=== PATIENT | female | born 1940 | race Caucasian/White ===

== ENCOUNTER → 2016-03-07 | Outpatient (CLI) | payer OTHER ==
[~2016-03-07] VITALS: Ht 157.5 cm; Wt 101.4 kg
[~2016-03-07] MED LIST: ASCA500 PO; ASPI81TA28 PO; CALC500C70 PO; CETI10TA84 PO; COEN90TA PO; EZET10TA63 PO; GLC/500 PO; HYDR25TA4 PO; IBUP-103 PO; LISI-725 PO; LISI-794 PO; METO25TA56 PO; MULT-506 PO; OMEG10007 PO; OMEP20TA PO; RED600TA PO; SIMV10TA2 PO
[2016-03-07 16:00] VITALS: BP 131/58; PULSE 67; Ht 157.5 cm; Wt 101.4 kg
== END | disposition home or self-care (01) ==
LOC: C.NEUR 15:43
PROVIDERS: ATTEND Internal Medicine Pulmonary Disease
DX: G47.33 Obstructive sleep apnea (adult) (pediatric) (principal); G47.61 Periodic limb movement disorder; R40.0 Somnolence

== ENCOUNTER → 2016-03-31 | Outpatient (CLI) | payer OTHER ==
[~2016-03-31] MED LIST changes: -LISI-725 PO; -METO25TA56 PO; -OMEG10007 PO; -SIMV10TA2 PO
[2016-03-31 09:59] LABS: ALT/SGPT 23 U/L (12-78); AST/SGOT 17 U/L (15-37); BLOOD UREA NITROGEN 15 mg/dl (7-18); BUN/CREATININE RATIO 16.1 (10-20); CALCIUM 8.8 mg/dl (8.5-10.1); CARBON DIOXIDE 26 mmol/L (21-32); CHLORIDE 105 mmol/L (98-107); CHOLESTEROL 215 mg/dl (0-200); GLUCOSE 125 mg/dl (70-99); POTASSIUM 4.2 mmol/L (3.5-5.1); SODIUM 139 mmol/L (136-145); TRIGLYCERIDES 165 mg/dl (0-150); VERY LOW DENSITY LIPOPROT CALC 33 mg/dl
[2016-03-31 10:02] LABS: CHOLESTEROL/HDL RATIO 4.3; HDL CHOLESTEROL 50 mg/dl; LDL CHOLESTEROL CALCULATED 132 mg/dl
[2016-03-31 10:19] LABS: ESTIMATED AVERAGE GLUCOSE 128 mg/dl; HA1C FLAG Normal (Normal)
== END | disposition home or self-care (01) ==
LOC: C.LAB1850 08:32
PROVIDERS: ATTEND Family Medicine
DX: E11.9 Type 2 diabetes mellitus without complications (principal); E78.00 Pure hypercholesterolemia, unspecified; I10 Essential (primary) hypertension

== ENCOUNTER → 2016-05-01 | Day surgery (SDC) | payer OTHER ==
[2016-03-23 13:38] VITALS: Ht 158.8 cm; Wt 101.4 kg
[~2016-05-01] VITALS: Ht 158.8 cm; Wt 101.4 kg
[~2016-05-01] MED LIST changes: +LIDOCAINE HCL 2% 2 ML VIAL (20MG/ML) ONE; +PROPOFOL IV EMULSION 10 MG/ML 20 ML VIAL IV ONE
--- NOTE | 2016-05-01 13:51 | Endo History and Physical ---
History & Physical Date of Service: May 01, 2016. Chief Complaint: DYSPHAGIA, SCREENING Referring Physician: DR. SANDOVAL History of Present Illness For EGD and colonoscopy Past Surgical History Hx Cardiac Surgery: Yes (HEART CATH, NO STENTS) Hx Internal Defibrillator: No Hx Pacemaker: No Hx Abdominal Surgery: Yes (EDSON) Hx of Implantable Prosthesis: No Hx Post-Op Nausea and Vomiting: No Hx Cancer Surgery: No Hx Thoracic Surgery: No Hx Orthopedic: No Hx Urinary Tract Surgery: No Family History Colon CA Social History Smoking Status: Never Smoker Hx Substance Use: No Hx Alcohol Use: No Allergies Coded Allergies: Statins (Verified Allergy, Unknown, LEG CRAMPS, 05/01/16) Current Medications Reported Home Medications Medications Dose Route/Sig Max Daily Dose Days Date Category Zetia (Ezetimibe) 10 Mg Tab 10 Mg PO DAILY 05/01/16 Reported Aspirin Ec (Aspirin) 81 Mg Tab 81 Mg PO Q2D 03/23/16 Reported Vitamin C (Ascorbic Acid) 500 Mg Tab 1 Tab PO QAM 03/23/16 Reported Multivitamin (Multivitamins) Tab 1 Tab PO QAM 03/23/16 Reported Advil (Ibuprofen) 200 Mg Tab 200-600 Mg PO Q4H PRN 03/23/16 Reported Os-Sandro 500 Plus D (Calcium/Vitamin D) Tab 1 Tab PO QAM 03/23/16 Reported Red Yeast Rice (Red Yeast Rice Extract) 600 Mg Tab 2 Tabs PO BID 03/23/16 Reported Co Q10 (Coenzyme Q10) 90 Mg Tab 1 Tab PO QAM 03/23/16 Reported Zestril (Lisinopril) 40 Mg Tab 40 Mg PO QAM 03/23/16 Reported Hctz (Hydrochlorothiazide) 25 Mg Tab 25 Mg PO QAM 08/24/12 Reported Glucophage (Metformin Hcl) 500 Mg Tab 1,500 Mg PO QPM 08/24/12 Reported Glucophage (Metformin Hcl) 500 Mg Tab 1,000 Mg PO QAM 08/24/12 Reported Vital Signs Weight (Kilograms): 101.36 Height (Feet): 5 Height (Inches): 2.5 Date Time Temp Pulse Resp B/P Pulse Ox O2 Delivery O2 Flow Rate FiO2 05/01/16 13:35 36.4 74 16 157/75 98 Room Air Physical Exam General Appearance: WD/WN Respiratory/Chest: Respiratory effort: no dyspnea Cardiovascular: Heart Auscultation: RRR Abdomen: Inspection & Palpation: soft Assessment and Plan Dysphagia and fam hx colon cancer for EGD and colonoscopy
--- NOTE | 2016-05-01 14:20 | Discharge Instructions ---
Endoscopy Patient Instructions Date / Procedure(s) Performed May 01, 2016. Colonoscopy, EGD Allergy Information Coded Allergies: Statins (Verified Allergy, Unknown, LEG CRAMPS, 05/01/16) Discharge Date / Findings May 01, 2016. Stricture dilated, Hiatal hernia, polyp Medication Instructions Stopped Medication(s): ASPIRIN 04/26/16 Restart Stopped Medication(s): resume meds Reported Home Medications Medications Dose Route/Sig Max Daily Dose Days Date Category Zetia (Ezetimibe) 10 Mg Tab 10 Mg PO DAILY 05/01/16 Reported Aspirin Ec (Aspirin) 81 Mg Tab 81 Mg PO Q2D 03/23/16 Reported Vitamin C (Ascorbic Acid) 500 Mg Tab 1 Tab PO QAM 03/23/16 Reported Multivitamin (Multivitamins) Tab 1 Tab PO QAM 03/23/16 Reported Advil (Ibuprofen) 200 Mg Tab 200-600 Mg PO Q4H PRN 03/23/16 Reported Os-Sandro 500 Plus D (Calcium/Vitamin D) Tab 1 Tab PO QAM 03/23/16 Reported Red Yeast Rice (Red Yeast Rice Extract) 600 Mg Tab 2 Tabs PO BID 03/23/16 Reported Co Q10 (Coenzyme Q10) 90 Mg Tab 1 Tab PO QAM 03/23/16 Reported Zestril (Lisinopril) 40 Mg Tab 40 Mg PO QAM 03/23/16 Reported Hctz (Hydrochlorothiazide) 25 Mg Tab 25 Mg PO QAM 08/24/12 Reported Glucophage (Metformin Hcl) 500 Mg Tab 1,500 Mg PO QPM 08/24/12 Reported Glucophage (Metformin Hcl) 500 Mg Tab 1,000 Mg PO QAM 08/24/12 Reported Provider Instructions Activity Restrictions - No exercising or heavy lifting for 24 hours. - Do not drink alcohol the day of the procedure. - Do not drive a car or operate machinery until the day after the procedure. - Do not make any important decisions or sign important papers in 24 hours after the procedure. Following Day: - Return to full activity which may include returning to work/school. Diet Start your diet with liquids and light foods (jello, soup, juice, toast). Then eat your usual diet if not nauseated. Treatment For Common After Affects For mild abdominal pain, bloating, or excessive gas: - Rest - Eat lightly - Lie on right side Follow-Up Information Follow-up with DR. SANDOVAL as scheduled Anesthesia Information What You Should Know You have had a procedure that required some medicine to reduce anxiety and discomfort. This treatment is called moderate sedation. After receiving the treatment, you may be sleepy, but you will be able to breathe on your own. The effects of the treatment may last for several hours. Follow these instructions along with Activity/Diet recommendations noted above: * Do NOT do anything where dizziness or clumsiness would be dangerous. * Rest quietly at home today, then you can be up and about tomorrow. * Have a responsible person stay with you the rest of today. * You may have had an I.V. today. If so, you may take the dressing off later today. Recommendations Call your doctor if: * Trouble breathing * Continuous vomiting for more than 24 hours * Temperature above 101 degrees * Severe abdominal pain or bloating * Pain not relieved by pain medicine ordered * There is increased drainage or redness from any incision * A large amount of rectal bleeding greater than 2-3 tablespoons. (If you had a polyp/s removed or have hemorrhoids, a small amount of blood - from the rectum is to be expected.) * You have any unanswered questions or concerns. IN THE EVENT OF A SERIOUS EMERGENCY, GO TO THE NEAREST EMERGENCY ROOM Your discharge instructions were prepared by provider Nahun Henry. Patient Instructions Signature Page Jory Mayer Patient (or Guardian) Signature/Date: I have read and understand the instructions given to me by my caregivers. Caregiver/RN/Doctor Signature/Date: The above-named patient and/or guardian has received patient instructions on this date. + Original Patient Signature Page (only) stays with chart. Please make copy for patient.
--- NOTE | 2016-05-01 14:26 | GI REPORT ---
Procedure Date: 05/01/2016 1:37 PM Procedure: Upper GI endoscopy Indications: Dysphagia Medicines: Propofol total dose 450 mg IV, Lidocaine 100 mg IV Complications: No immediate complications. Estimated Blood Loss: Estimated blood loss: none. Estimated blood loss: none. Procedure: Pre-Anesthesia Assessment: - Prior to the procedure, a History and Physical was performed, and patient medications, allergies and sensitivities were reviewed. The patient's tolerance of previous anesthesia was reviewed. - The risks and benefits of the procedure and the sedation options and risks were discussed with the patient. All questions were answered and informed consent was obtained. After obtaining informed consent, the endoscope was passed under direct vision. Throughout the procedure, the patient's blood pressure, pulse, and oxygen saturations were monitored continuously. The scope was introduced through the mouth, and advanced to the second part of duodenum. The upper GI endoscopy was accomplished without difficulty. The patient tolerated the procedure well. Findings: A small hiatus hernia was present. LA Grade A (one or more mucosal breaks less than 5 mm, not extending between tops of 2 mucosal folds) esophagitis with no bleeding was found. One mild benign-appearing, intrinsic stenosis was found. And was traversed. A guidewire was placed and the scope was withdrawn. Dilation was performed with a Savary dilator with no resistance at 54 Fr. The entire examined stomach was normal. The examined duodenum was normal. Impression: - Small hiatus hernia. - LA Grade A reflux esophagitis. - Benign-appearing esophageal stenosis. Dilated. - Normal stomach. - Normal examined duodenum. - No specimens collected. Recommendation: - Discharge patient to home (ambulatory). - Continue present medications. - Return to primary care physician PRN. - Discharge patient to home (ambulatory). - Continue present medications. - Return to primary care physician PRN. Nahun Henry M.D. Nahun Henry MD 05/01/2016 2:26:30 PM This report has been signed electronically. Note Initiated On: 05/01/2016 1:37 PM I attest to the content of the Intraoperative Record and orders documented therein, exceptions below
--- NOTE | 2016-05-01 14:31 | GI REPORT ---
Procedure Date: 05/01/2016 1:38 PM Procedure: Colonoscopy Indications: Screening for colorectal malignant neoplasm Medicines: Propofol total dose 450 mg IV, Lidocaine 100 mg IV Complications: No immediate complications. Estimated Blood Loss: Estimated blood loss: none. Procedure: Pre-Anesthesia Assessment: - Prior to the procedure, a History and Physical was performed, and patient medications, allergies and sensitivities were reviewed. The patient's tolerance of previous anesthesia was reviewed. - The risks and benefits of the procedure and the sedation options and risks were discussed with the patient. All questions were answered and informed consent was obtained. After I obtained informed consent, the scope was passed under direct vision. Throughout the procedure, the patient's blood pressure, pulse, and oxygen saturations were monitored continuously. The Scope was introduced through the anus and advanced to the cecum, identified by appendiceal orifice and ileocecal valve. The colonoscopy was performed without difficulty. The patient tolerated the procedure well. The quality of the bowel preparation was good. Findings: A 4 mm polyp was found in the cecum. The polyp was sessile. The polyp was removed with a cold snare. Resection and retrieval were complete. Estimated blood loss was minimal. Impression: - One 4 mm polyp in the cecum, removed with a cold snare. Resected and retrieved. Recommendation: - Discharge patient to home (ambulatory). - Continue present medications. - Await pathology results. - Return to primary care physician. Nahnu Henry M.D. Nahun Henry MD 05/01/2016 2:31:43 PM This report has been signed electronically. Note Initiated On: 05/01/2016 1:38 PM I attest to the content of the Intraoperative Record and orders documented therein, exceptions below
--- NOTE | 2016-05-01 14:36 | Anesthesiology Progress Note ---
Anesthesia Post Op Note Date & Time May 01, 2016 at 14:36 Vital Signs Pain Intensity: 0 Vital Signs Past 12 Hours Date Time Temp Pulse Resp B/P Pulse Ox O2 Delivery O2 Flow Rate FiO2 05/01/16 14:24 67 18 109/58 98 Room Air 05/01/16 13:35 36.4 74 16 157/75 98 Room Air Notes Mental Status: alert / awake / arousable, participated in evaluation Pt Amnestic to Procedure: Yes Nausea / Vomiting: adequately controlled Pain: adequately controlled Airway Patency, RR, SpO2: stable & adequate BP & HR: stable & adequate Hydration State: stable & adequate Anesthetic Complications: no major complications apparent
[2016-05-01 14:54] VITALS: BP 127/57; PULSE 59; O2SAT 99
== END | disposition home or self-care (01) ==
LOC: C.GI 13:09
PROVIDERS: ATTEND Internal Medicine Gastroenterology
DX: R13.10 Dysphagia, unspecified (principal); D12.0 Benign neoplasm of cecum; K22.2 Esophageal obstruction; K21.0 Gastro-esophageal reflux disease with esophagitis; K44.9 Diaphragmatic hernia without obstruction or gangrene; Z90.49 Acquired absence of other specified parts of digestive tract; Z80.0 Family history of malignant neoplasm of digestive organs; Z88.8 Allergy status to other drugs, medicaments and biological substances; Z79.82 Long term (current) use of aspirin; G47.33 Obstructive sleep apnea (adult) (pediatric); I10 Essential (primary) hypertension; E78.5 Hyperlipidemia, unspecified; M19.90 Unspecified osteoarthritis, unspecified site; E11.9 Type 2 diabetes mellitus without complications; Z87.891 Personal history of nicotine dependence

== ENCOUNTER 2016-07-31 00:36 | Emergency (ER) | payer OTHER ==
[~2016-07-31] VITALS: Ht 156.2 cm; Wt 101.1 kg
[~2016-07-31 00:36] MED LIST changes: -CETI10TA84 PO; -LIDOCAINE HCL 2% 2 ML VIAL (20MG/ML) ONE; -OMEP20TA PO; -PROPOFOL IV EMULSION 10 MG/ML 20 ML VIAL IV ONE
[2016-07-31 00:43] VITALS: Ht 156.2 cm; Wt 101.1 kg
--- NOTE | 2016-07-31 01:17 | EMERGENCY ROOM VISIT NOTE ---
History First contact with patient: 00:48 Chief Complaint: FOOD BOLUS Stated Complaint: FEELS LIKE SOMETHING IS STUCK IN THROAT History of Present Illness The patient is a 75 year old female who presents to the Emergency Room with complaints of something stuck in her throat. The patient reports she was eating dinner approximately 6 hours ago and something got stuck in her throat. She states she was eating steak and crab cakes. She has difficulty swallowing and has been gagging. She reports a long history of problems swallowing and had a recent scope performed by Dr. Henry. She denies any difficulty breathing or chest pain. Review of Systems A complete 10 point review of systems was reviewed with the patient with pertinent positives and negatives as per history of present illness. All else were negative. Social History Smoking Status: Never Smoker Current/Historical Medications Scheduled Ascorbic Acid (Vitamin C), 1 TAB PO QAM Aspirin (Aspirin Ec), 81 MG PO Q2D Calcium/Vitamin D (Os-Sandro 500 Plus D), 1 TAB PO QAM Coenzyme Q10 (Ubidecarenone) (Co Q10), 1 TAB PO QAM Ezetimibe (Zetia), 10 MG PO DAILY Hydrochlorothiazide (Hctz), 25 MG PO QAM Lisinopril (Zestril), 40 MG PO QAM Metformin Hcl (Glucophage), 1,000 MG PO QAM Metformin Hcl (Glucophage), 1,500 MG PO QPM Multivitamin (Multivitamin), 1 TAB PO QAM Red Yeast Rice Extract (Red Yeast Rice), 2 TABS PO BID Scheduled PRN Ibuprofen Tab (Advil), 200-600 MG PO Q4H PRN for Pain Allergies Coded Allergies: Statins (Verified Allergy, Unknown, LEG CRAMPS, 05/01/16) Physical Exam Vital Signs Date Time Temp Pulse Resp B/P (MAP) Pulse Ox O2 Delivery O2 Flow Rate FiO2 07/31/16 04:05 69 14 123/55 (77) 96 Room Air 07/31/16 03:50 77 14 122/50 (74) 95 Room Air 07/31/16 03:40 71 14 130/52 (78) 95 Room Air 07/31/16 03:25 36.3 75 21 105/50 93 Room Air 07/31/16 03:25 36.6 72 14 118/47 (70) 94 Room Air 07/31/16 03:20 74 17 130/57 94 Room Air 07/31/16 03:10 72 14 128/52 96 Room Air 07/31/16 03:00 72 14 94/56 96 Room Air 07/31/16 02:01 72 20 140/83 98 07/31/16 01:22 Room Air 07/31/16 00:43 36.6 66 19 147/84 96 Room Air Physical Exam VITALS: Vitals are noted on the nurse's note and reviewed by myself. Vital signs stable. GENERAL: This is a 75-year-old female, in no acute distress, spitting saliva into an emesis bag and gagging, nondiaphoretic, well-developed well-nourished. MOUTH: Mucous membranes moist, oropharynx clear. Airway patent. HEART: Regular rate and rhythm without murmurs gallops or rubs. LUNGS: Clear to auscultation bilaterally without wheezes, rales or rhonchi. NEURO: Patient was alert and oriented to person place and time. Medical Decision & Procedures Laboratory Results Test 07/31/16 02:13 Bedside Glucose 126 mg/dl (70-90) ED Course The patient was evaluated as above. Labs were drawn and IV access was obtained. Case was discussed with Dr. Benton of GI. He will take the patient to the OR. Please see his note for patient course and disposition. Medical Decision Differential diagnosis includes food bolus, esophagitis, infection, among others. The patient is a 75-year-old with pmhx of dysphagia who presents today complaining of a food bolus. Patient was spitting into an emesis bag on arrival. GI was consulted and agrees to take the patient to the OR for EGD. See their notes for course and disposition. Patient was stable while in the emergency department. The patient was independently evaluated by Dr. Goel, ED attending physician , who agreed with my assessment and treatment plan. Medication reconciliation: I attest that I have personally reviewed the patient 's current medication list. Blood pressure screening: Patient was found to have an elevated blood pressure and was referred to their primary care provider for recheck and further treatment. Impression Primary Impression: Esophageal obstruction due to food impaction Departure Information Referrals Dez Ruffin M.D. (PCP) Patient Instructions My [facility]
[2016-07-31] MEDS ORDERED: PROPOFOL IV EMULSION 10 MG/ML 20 ML VIAL IV ONE (01:55)
[2016-07-31] MEDS ORDERED: FENTANYL CITRATE INJ 50 MCG/1 ML 2 ML VIAL ONE (01:57)
--- NOTE | 2016-07-31 01:59 | History & Physical Bridge Note ---
H&P Re-Evaluation Bridge Note: I have examined the patient, reviewed the History & Physical and in the interval since the performance of the History & Physical I have noted the following changes of clinical significance: AAOx3 Nls1s2 Lungs CTA Abd soft NT/ND + BS - CCE for EGD food bolus removal
[2016-07-31] MEDS ORDERED: ONDANSETRON INJ 2 MG/ML 2 ML VIAL ONE (02:00)
[2016-07-31] MEDS ORDERED: LIDOCAINE HCL 2% 2 ML VIAL (20MG/ML) ONE (02:00)
[2016-07-31] MEDS ORDERED: SUCCINYLCHOLINE CHLORIDE 20 MG/ML 10 ML VIAL IV ONE (02:00)
[2016-07-31 02:01] VITALS: O2SAT 98
[2016-07-31] MEDS ORDERED: ATROPINE SULFATE 0.1 MG/ML 5ML SYR IV PRN (02:15)
[2016-07-31] MEDS ORDERED: HYDROmorphone INJ 2 MG/ML SYR/VIAL IV PRN (02:15)
[2016-07-31] MEDS ORDERED: FENTANYL CITRATE INJ 50 MCG/1 ML 2 ML VIAL IV PRN (02:15)
[2016-07-31] MEDS ORDERED: PHENYLEPHRINE 100MCG/ML 5ML SYR IV PRN (02:15)
[2016-07-31] MEDS ORDERED: FLUMAZENIL 0.1 MG/1 ML 10 ML VIAL IV PRN (02:15)
[2016-07-31] MEDS ORDERED: NALOXONE HCL 0.4 MG/1 ML VIAL/CARP IV PRN (02:15)
[2016-07-31] MEDS ORDERED: LABETALOL HCL IV 5 MG/ML 20ML IV PRN (02:15)
[2016-07-31] MEDS ORDERED: EpHEDrine SULFATE INJ 50 MG/ML AMP IV PRN (02:15)
[2016-07-31] MEDS ORDERED: ONDANSETRON INJ 2 MG/ML 2 ML VIAL IV PRN (02:15)
[2016-07-31] MEDS ORDERED: MEPERIDINE HCL 25 MG/ML CARP IV PRN (02:15)
[2016-07-31] MEDS ORDERED: METOCLOPRAMIDE HCL INJ 5 MG/ML 2 ML VIAL ONE (02:37)
[2016-07-31] MEDS ORDERED: PHENYLEPHRINE HCL INJ 10 MG/ML VIAL ONE (02:38)
--- NOTE | 2016-07-31 02:55 | GI REPORT ---
Procedure Date: 07/31/2016 1:47 AM Procedure: Upper GI endoscopy Indications: Foreign body in the esophagus Medicines: General Anesthesia Complications: No immediate complications. Estimated blood loss: Minimal. Estimated Blood Loss: Estimated blood loss was minimal. Estimated blood loss was minimal. Procedure: Pre-Anesthesia Assessment: - Prior to the procedure, a History and Physical was performed, and patient medications and allergies were reviewed. The patient's tolerance of previous anesthesia was also reviewed. The risks and benefits of the procedure and the sedation options and risks were discussed with the patient. All questions were answered, and informed consent was obtained. Prior Anticoagulants: The patient has taken no previous anticoagulant or antiplatelet agents. ASA Grade Assessment: III - A patient with severe systemic disease. After reviewing the risks and benefits, the patient was deemed in satisfactory condition to undergo the procedure. After obtaining informed consent, the endoscope was passed under direct vision. Throughout the procedure, the patient's blood pressure, pulse, and oxygen saturations were monitored continuously. The On-site loaner was introduced through the mouth, and advanced to the second part of duodenum. The upper GI endoscopy was accomplished without difficulty. The patient tolerated the procedure well. Findings: Food was found in the middle third of the esophagus, in the lower third of the esophagus and at the gastroesophageal junction. Removal of food was accomplished. LA Grade B (one or more mucosal breaks greater than 5 mm, not extending between the tops of two mucosal folds) esophagitis with no bleeding was found 36 to 38 cm from the incisors. A benign-appearing, intrinsic moderate stenosis measuring less than one cm (in length) was found 38 cm from the incisors and was traversed. One non-bleeding cratered gastric ulcer with no stigmata of bleeding was found in the cardia. The lesion was 10 mm in largest dimension. Biopsies were taken with a cold forceps for histology. Estimated blood loss was minimal. Verification of patient identification for the specimen was done by the physician and magnetic testing technician using the patient's name and medical record number. Patchy mildly erythematous mucosa without bleeding was found in the gastric body and in the gastric antrum. Biopsies were taken with a cold forceps for Helicobacter pylori testing. Estimated blood loss was minimal. Verification of patient identification for the specimen was done by the physician and magnetic testing technician using the patient's name and medical record number. A few localized erosions without bleeding were found in the duodenal bulb. The 2nd part of the duodenum was normal. The cardia and gastric fundus were normal on retroflexion. A small hiatus hernia was found. The proximal extent of the gastric folds (end of tubular esophagus) was 38 cm from the incisors. The hiatal narrowing was 39 cm from the incisors. The Z-line was 38 cm from the incisors. Impression: - Food in the middle third of the esophagus, in the lower third of the esophagus and at the gastroesophageal junction. Removal was successful. - LA Grade B reflux esophagitis. - Benign-appearing esophageal stricture. - Gastric ulcer. Biopsied. - Erythematous mucosa in the gastric body and antrum. Biopsied. - Duodenal erosions without bleeding. - Normal 2nd part of the duodenum. Recommendation: - Discharge patient to home (ambulatory). - Soft diet. - Repeat the upper endoscopy in 2 weeks to check healing and for retreatment. - Use Prilosec (omeprazole) 40 mg PO BID for 2 months. MD Porfirio Duffy MD 07/31/2016 2:54:41 AM This report has been signed electronically. Note Initiated On: 07/31/2016 1:47 AM I attest to the content of the Intraoperative Record and orders documented therein, exceptions below
[2016-07-31 03:25] VITALS: BP 105/50; PULSE 75; TEMP 36.3; O2SAT 93
--- NOTE | 2016-07-31 03:28 | Anesthesiology Progress Note ---
Anesthesia Post Op Note Date & Time Jul 31, 2016 at 03:26 Vital Signs Pain Intensity: 3 Vital Signs Past 12 Hours Date Time Temp Pulse Resp B/P (MAP) Pulse Ox O2 Delivery O2 Flow Rate FiO2 07/31/16 03:20 74 17 130/57 94 Room Air 07/31/16 03:10 72 14 128/52 96 Room Air 07/31/16 03:00 72 14 94/56 96 Room Air 07/31/16 02:01 72 20 140/83 98 07/31/16 01:22 Room Air 07/31/16 00:43 36.6 66 19 147/84 96 Room Air Notes Mental Status: alert / awake / arousable, participated in evaluation Pt Amnestic to Procedure: Yes Nausea / Vomiting: adequately controlled Pain: adequately controlled Airway Patency, RR, SpO2: stable & adequate BP & HR: stable & adequate Hydration State: stable & adequate Anesthetic Complications: no major complications apparent The patient was continuously vomiting clear fluid in the perioperative period, but did not appear to aspirate on intubation or extubation. Her lungs were clear to auscultation in the PACU and SpO2 was 96 on room air in recovery.
--- NOTE | 2016-07-31 03:50 | Discharge Instructions ---
Endoscopy Patient Instructions Date / Procedure(s) Performed Jul 31, 2016. EGD Allergy Information Coded Allergies: Statins (Verified Allergy, Unknown, LEG CRAMPS, 05/01/16) Discharge Date / Findings Jul 31, 2016. Food bolus- removed esophagitis duodenitis Biopsy taken Medication Instructions Restart Stopped Medication(s): begin Prilosec 40mg twice daily 1/2 hour before breakfast and supper repeat upper endioscopy in 2-3 weeks to reassess area Soft diet ( avoid dense foods, chew thoroughly) will contact you with biopsy results once available Reported Home Medications Medications Dose Route/Sig Max Daily Dose Days Date Category Zetia (Ezetimibe) 10 Mg Tab 10 Mg PO DAILY 05/01/16 Reported Aspirin Ec (Aspirin) 81 Mg Tab 81 Mg PO Q2D 03/23/16 Reported Vitamin C (Ascorbic Acid) 500 Mg Tab 1 Tab PO QAM 03/23/16 Reported Multivitamin (Multivitamins) Tab 1 Tab PO QAM 03/23/16 Reported Advil (Ibuprofen) 200 Mg Tab 200-600 Mg PO Q4H PRN 03/23/16 Reported Os-Sandro 500 Plus D (Calcium/Vitamin D) Tab 1 Tab PO QAM 03/23/16 Reported Red Yeast Rice (Red Yeast Rice Extract) 600 Mg Tab 2 Tabs PO BID 03/23/16 Reported Co Q10 (Coenzyme Q10) 90 Mg Tab 1 Tab PO QAM 03/23/16 Reported Zestril (Lisinopril) 40 Mg Tab 40 Mg PO QAM 03/23/16 Reported Hctz (Hydrochlorothiazide) 25 Mg Tab 25 Mg PO QAM 08/24/12 Reported Glucophage (Metformin Hcl) 500 Mg Tab 1,500 Mg PO QPM 08/24/12 Reported Glucophage (Metformin Hcl) 500 Mg Tab 1,000 Mg PO QAM 08/24/12 Reported Prilosec 40mg twice daily 1/2 hr before breakfast and supper - [facility] Provider Instructions Activity Restrictions - No exercising or heavy lifting for 24 hours. - Do not drink alcohol the day of the procedure. - Do not drive a car or operate machinery until the day after the procedure. - Do not make any important decisions or sign important papers in 24 hours after the procedure. Following Day: - Return to full activity which may include returning to work/school. Diet Start your diet with liquids and light foods (jello, soup, juice, toast). Then eat your usual diet if not nauseated. Treatment For Common After Affects For mild abdominal pain, bloating, or excessive gas: - Rest - Eat lightly - Lie on right side Follow-Up Information Follow-up with as scheduled Anesthesia Information What You Should Know You have had a procedure that required some medicine to reduce anxiety and discomfort. This treatment is called moderate sedation. After receiving the treatment, you may be sleepy, but you will be able to breathe on your own. The effects of the treatment may last for several hours. Follow these instructions along with Activity/Diet recommendations noted above: * Do NOT do anything where dizziness or clumsiness would be dangerous. * Rest quietly at home today, then you can be up and about tomorrow. * Have a responsible person stay with you the rest of today. * You may have had an I.V. today. If so, you may take the dressing off later today. Recommendations Call your doctor if: * Trouble breathing * Continuous vomiting for more than 24 hours * Temperature above 101 degrees * Severe abdominal pain or bloating * Pain not relieved by pain medicine ordered * There is increased drainage or redness from any incision * A large amount of rectal bleeding greater than 2-3 tablespoons. (If you had a polyp/s removed or have hemorrhoids, a small amount of blood - from the rectum is to be expected.) * You have any unanswered questions or concerns. IN THE EVENT OF A SERIOUS EMERGENCY, GO TO THE NEAREST EMERGENCY ROOM Your discharge instructions were prepared by provider Porfirio Benton. Patient Instructions Signature Page Jory Mayer Patient (or Guardian) Signature/Date: I have read and understand the instructions given to me by my caregivers. Caregiver/RN/Doctor Signature/Date: The above-named patient and/or guardian has received patient instructions on this date. + Original Patient Signature Page (only) stays with chart. Please make copy for patient.
[2016-07-31 04:05] VITALS: BP 123/55; PULSE 69; O2SAT 96
--- NOTE | 2016-07-31 06:55 | EMERGENCY ROOM VISIT NOTE ---
ED Visit Note First contact with patient: 00:48 I have personally evaluated and examined this patient. I agree with assessment and plan of Jinny Bowman PA-C. Pleasant 75 yr old female with food bolus impaction likely secondary to steak during dinner. Previously occurred a few months ago as well. Has not been on anti-acids.
--- NOTE | 2016-07-31 10:32 | GASTROINTESTINAL CONSULTATION ---
DATE OF CONSULTATION: 07/31/2016 TIME: 2 a.m. HISTORY OF PRESENT ILLNESS: This is a 75-year-old white female with a chief complaint of food bolus after eating crab cakes and steak at approximately 7:00 p.m. Contacted by the ER for patient with continued symptoms of dysphagia due to recent ingestion of broccoli and dense meats. The patient is having difficulty handling saliva. The patient's and patient reports that perhaps once weekly or so the patient will have a sluggishness with eating foods, although generally goes down. She does not recall any need for prior to some food bolus removal in the past, although did have an upper endoscopy and colonoscopy by Dr. Henry in April of 2016, at which time, he found grade A esophagitis, hiatal hernia, benign appearing esophageal stenosis that he dilated to 54-Mauritan[place] without resistance. The patient denies any weight loss, nausea, vomiting, hematemesis or coffee-ground emesis. She takes no chronic acid suppressing medications. Denies nocturnal heartburn or daytime heartburn. PAST MEDICAL HISTORY: Significant for diabetes. MEDICATIONS: The patient's home medications include vitamin, aspirin, Coenzyme Q, Zetia, hydrochlorothiazide, lisinopril, metformin, multivitamins, red yeast, rice extract. She also takes p.r.n. ibuprofen. ALLERGIES: SHE IS ALLERGIC TO STATINS WHICH CAUSES SIGNIFICANT LEG CRAMPS. FAMILY HISTORY: Noncontributory, although does have a family history of colorectal cancer in her mother. The patient reports that she has had several colonoscopies by Dr. Henry in addition the upper endoscopy above for which generally small polyps are found. REVIEW OF SYSTEMS: Otherwise noncontributory based on 14-point exam except for mentioned above. The patient has no chest pain, shortness of breath. PHYSICAL EXAMINATION: VITAL SIGNS: Today blood pressure 147/84, pulse ox 96% on room air, respirations 19, heart rate 66, temperature 36.6. GENERAL: The patient is awake, alert and oriented x3, accompanied by her seen in the Emergency Room. HEENT: Sclerae are anicteric. Conjunctivae are moist. Oral mucosa is moist. HEART: Normal S1, S2. LUNGS: Clear to auscultation. ABDOMEN: Soft, flat and obese, nontender, nondistended, without rebound or guarding. No hepatosplenomegaly. I do not appreciate abdominal bruits or evidence of ascites or shifting dullness. EXTREMITIES: Without clubbing, cyanosis. RECTAL: Deferred at this time. LABORATORY STUDIES: Not available from this visit. ASSESSMENT AND PLAN: The patient with food bolus beginning at 7:00 Sunday evening and persisted. She is unable to handle her own saliva. We will plan for an emergent EGD in the operating room for food bolus removal. The patient may ultimately require repeat upper endoscopy to reassess for strictures dilation as needed and will likely be discharged on home proton pump inhibitors to minimize any residual reflux of effects or injury from the impacted food. Further recommendations to follow.
[2016-08-25] MEDS ORDERED: OMEP20TA PO (13:06)
[2016-08-25] MEDS ORDERED: CETI10TA84 PO (13:06)
== END 2016-07-31 02:01 | disposition still patient (30) ==
LOC: C.EDB 00:38 → C.EDA 02:01
DX: T18.128A Food in esophagus causing other injury, initial encounter (principal); X58.XXXA Exposure to other specified factors, initial encounter; Z79.82 Long term (current) use of aspirin; Z79.84 Long term (current) use of oral hypoglycemic drugs

== ENCOUNTER → 2016-08-03 | Outpatient (CLI) | payer OTHER ==
[~2016-08-03] MED LIST changes: +CETI10TA84 PO; +OMEP20TA PO
[2016-08-03 13:09] LABS: ALT/SGPT 25 U/L (12-78); AST/SGOT 18 U/L (15-37); BLOOD UREA NITROGEN 18 mg/dl (7-18); BUN/CREATININE RATIO 18.8 (10-20); CALCIUM 9.1 mg/dl (8.5-10.1); CARBON DIOXIDE 25 mmol/L (21-32); CHLORIDE 104 mmol/L (98-107); CHOLESTEROL 193 mg/dl (0-200); CREATININE 0.93 mg/dl (0.60-1.20); GLUCOSE 127 mg/dl (70-99); POTASSIUM 4.3 mmol/L (3.5-5.1); SODIUM 138 mmol/L (136-145); TRIGLYCERIDES 143 mg/dl (0-150); VERY LOW DENSITY LIPOPROT CALC 29 mg/dl
[2016-08-03 13:12] LABS: CHOLESTEROL/HDL RATIO 4.4; HDL CHOLESTEROL 44 mg/dl; LDL CHOLESTEROL CALCULATED 120 mg/dl
[2016-08-03 13:37] LABS: ESTIMATED AVERAGE GLUCOSE 137 mg/dl; HA1C FLAG Normal (Normal)
== END | disposition home or self-care (01) ==
LOC: C.LABMFLN 08:41
PROVIDERS: ATTEND Family Medicine
DX: E11.9 Type 2 diabetes mellitus without complications (principal); E78.00 Pure hypercholesterolemia, unspecified

== ENCOUNTER → 2016-08-31 | Day surgery (SDC) | payer OTHER ==
[2016-08-25 13:07] VITALS: BMI 40.0
[~2016-08-31] VITALS: Ht 160 cm; Wt 101.4 kg
[~2016-08-31] MED LIST changes: -ASPI81TA28 PO; +LIDOCAINE HCL 2% 2 ML VIAL (20MG/ML) ONE; +PROPOFOL IV EMULSION 10 MG/ML 20 ML VIAL IV ONE; +SODIUM CHLORIDE 0.9% 500ML 500 ML IV ONE
[2016-08-31 12:23] VITALS: Ht 160 cm; Wt 101.4 kg
--- NOTE | 2016-08-31 13:29 | Endo History and Physical ---
History & Physical Date of Service: Aug 31, 2016. Chief Complaint: ESOPHAGITIS SP FOOD BOLUS Referring Physician: DR. TESSA SANDOVAL History of Present Illness Pt with prior food bolus; on BID PPI; occasioanl sticking sicne FB removal; no wt loss Past Surgical History Hx Cardiac Surgery: Yes (HEART CATH, NO STENTS) Hx Internal Defibrillator: No Hx Pacemaker: No Hx Abdominal Surgery: Yes ([facility]) Hx of Implantable Prosthesis: No Hx Post-Op Nausea and Vomiting: No Hx Cancer Surgery: No Hx Thoracic Surgery: No Hx Orthopedic: No Hx Urinary Tract Surgery: No Family History Colon CA Social History Smoking Status: Never Smoker Hx Substance Use: No Hx Alcohol Use: No Allergies Coded Allergies: Statins (Verified Allergy, Unknown, LEG CRAMPS, 08/31/16) Current Medications Reported Home Medications Medications Dose Route/Sig Max Daily Dose Days Date Category Omeprazole 20 Mg Tab 40 Mg PO BID 08/25/16 Reported Zyrtec (Cetirizine HCl) 10 Mg Tab 10 Mg PO QAM PRN 08/25/16 Reported Zetia (Ezetimibe) 10 Mg Tab 10 Mg PO QAM 05/01/16 Reported Vitamin C (Ascorbic Acid) 500 Mg Tab 1 Tab PO QAM 03/23/16 Reported Multivitamin (Multivitamins) Tab 1 Tab PO QAM 03/23/16 Reported Advil (Ibuprofen) 200 Mg Tab 200-600 Mg PO Q4H PRN 03/23/16 Reported Os-Sandro 500 Plus D (Calcium/Vitamin D) Tab 1 Tab PO QAM 03/23/16 Reported Red Yeast Rice (Red Yeast Rice Extract) 600 Mg Tab 2 Tabs PO BID 03/23/16 Reported Co Q10 (Coenzyme Q10) 90 Mg Tab 1 Tab PO QAM 03/23/16 Reported Zestril (Lisinopril) 40 Mg Tab 40 Mg PO QAM 03/23/16 Reported Hctz (Hydrochlorothiazide) 25 Mg Tab 25 Mg PO QAM 08/24/12 Reported Glucophage (Metformin Hcl) 500 Mg Tab 1,500 Mg PO QPM 08/24/12 Reported Glucophage (Metformin Hcl) 500 Mg Tab 1,000 Mg PO QAM 08/24/12 Reported Vital Signs Weight (Kilograms): 101.36 Height (Feet): 5 Height (Inches): 3 Date Time Temp Pulse Resp B/P (MAP) Pulse Ox O2 Delivery O2 Flow Rate FiO2 08/31/16 12:47 36.2 65 18 131/83 (99) 95 Room Air Physical Exam AAOx3 Nls1s2 Lungs CTA Abd soft NT/ND +BS - CCE Assessment and Plan EGD; possible dilation
--- NOTE | 2016-08-31 13:47 | Discharge Instructions ---
Endoscopy Patient Instructions Date / Procedure(s) Performed Aug 31, 2016. Colonoscopy, EGD Allergy Information Coded Allergies: Statins (Verified Allergy, Unknown, LEG CRAMPS, 08/31/16) Discharge Date / Findings Aug 31, 2016. dysphagia EGD with dilation 60 Fr Medication Instructions Stopped Medication(s): NO METFORMIN Restart Stopped Medication(s): Reported Home Medications Medications Dose Route/Sig Max Daily Dose Days Date Category Omeprazole 20 Mg Tab 40 Mg PO BID 08/25/16 Reported Zyrtec (Cetirizine HCl) 10 Mg Tab 10 Mg PO QAM PRN 08/25/16 Reported Zetia (Ezetimibe) 10 Mg Tab 10 Mg PO QAM 05/01/16 Reported Vitamin C (Ascorbic Acid) 500 Mg Tab 1 Tab PO QAM 03/23/16 Reported Multivitamin (Multivitamins) Tab 1 Tab PO QAM 03/23/16 Reported Advil (Ibuprofen) 200 Mg Tab 200-600 Mg PO Q4H PRN 03/23/16 Reported Os-Sandro 500 Plus D (Calcium/Vitamin D) Tab 1 Tab PO QAM 03/23/16 Reported Red Yeast Rice (Red Yeast Rice Extract) 600 Mg Tab 2 Tabs PO BID 03/23/16 Reported Co Q10 (Coenzyme Q10) 90 Mg Tab 1 Tab PO QAM 03/23/16 Reported Zestril (Lisinopril) 40 Mg Tab 40 Mg PO QAM 03/23/16 Reported Hctz (Hydrochlorothiazide) 25 Mg Tab 25 Mg PO QAM 08/24/12 Reported Glucophage (Metformin Hcl) 500 Mg Tab 1,500 Mg PO QPM 08/24/12 Reported Glucophage (Metformin Hcl) 500 Mg Tab 1,000 Mg PO QAM 08/24/12 Reported Provider Instructions Activity Restrictions - No exercising or heavy lifting for 24 hours. - Do not drink alcohol the day of the procedure. - Do not drive a car or operate machinery until the day after the procedure. - Do not make any important decisions or sign important papers in 24 hours after the procedure. Following Day: - Return to full activity which may include returning to work/school. Diet Start your diet with liquids and light foods (jello, soup, juice, toast). Then eat your usual diet if not nauseated. Treatment For Common After Affects For mild abdominal pain, bloating, or excessive gas: - Rest - Eat lightly - Lie on right side Reported Home Medications Medications Dose Route/Sig Max Daily Dose Days Date Category Omeprazole 20 Mg Tab 40 Mg PO BID 08/25/16 Reported Zyrtec (Cetirizine HCl) 10 Mg Tab 10 Mg PO QAM PRN 08/25/16 Reported Zetia (Ezetimibe) 10 Mg Tab 10 Mg PO QAM 05/01/16 Reported Vitamin C (Ascorbic Acid) 500 Mg Tab 1 Tab PO QAM 03/23/16 Reported Multivitamin (Multivitamins) Tab 1 Tab PO QAM 03/23/16 Reported Advil (Ibuprofen) 200 Mg Tab 200-600 Mg PO Q4H PRN 03/23/16 Reported Os-Sandro 500 Plus D (Calcium/Vitamin D) Tab 1 Tab PO QAM 03/23/16 Reported Red Yeast Rice (Red Yeast Rice Extract) 600 Mg Tab 2 Tabs PO BID 03/23/16 Reported Co Q10 (Coenzyme Q10) 90 Mg Tab 1 Tab PO QAM 03/23/16 Reported Zestril (Lisinopril) 40 Mg Tab 40 Mg PO QAM 03/23/16 Reported Hctz (Hydrochlorothiazide) 25 Mg Tab 25 Mg PO QAM 08/24/12 Reported Glucophage (Metformin Hcl) 500 Mg Tab 1,500 Mg PO QPM 08/24/12 Reported Glucophage (Metformin Hcl) 500 Mg Tab 1,000 Mg PO QAM 08/24/12 Reported Follow-Up Information Follow-up with DR. TESSA SANDOVAL as scheduled Anesthesia Information What You Should Know You have had a procedure that required some medicine to reduce anxiety and discomfort. This treatment is called moderate sedation. After receiving the treatment, you may be sleepy, but you will be able to breathe on your own. The effects of the treatment may last for several hours. Follow these instructions along with Activity/Diet recommendations noted above: * Do NOT do anything where dizziness or clumsiness would be dangerous. * Rest quietly at home today, then you can be up and about tomorrow. * Have a responsible person stay with you the rest of today. * You may have had an I.V. today. If so, you may take the dressing off later today. Recommendations Call your doctor if: * Trouble breathing * Continuous vomiting for more than 24 hours * Temperature above 101 degrees * Severe abdominal pain or bloating * Pain not relieved by pain medicine ordered * There is increased drainage or redness from any incision * A large amount of rectal bleeding greater than 2-3 tablespoons. (If you had a polyp/s removed or have hemorrhoids, a small amount of blood - from the rectum is to be expected.) * You have any unanswered questions or concerns. IN THE EVENT OF A SERIOUS EMERGENCY, GO TO THE NEAREST EMERGENCY ROOM Your discharge instructions were prepared by provider Porfirio Benton. Patient Instructions Signature Page Jory Mayer Patient (or Guardian) Signature/Date: I have read and understand the instructions given to me by my caregivers. Caregiver/RN/Doctor Signature/Date: The above-named patient and/or guardian has received patient instructions on this date. + Original Patient Signature Page (only) stays with chart. Please make copy for patient.
--- NOTE | 2016-08-31 13:58 | GI REPORT ---
Procedure Date: 08/31/2016 1:30 PM Procedure: Upper GI endoscopy Indications: Esophageal dysphagia Medicines: Propofol per Anesthesia Complications: No immediate complications. Estimated blood loss: None. Estimated Blood Loss: Estimated blood loss: none. Procedure: Pre-Anesthesia Assessment: - Prior to the procedure, a History and Physical was performed, and patient medications and allergies were reviewed. The patient's tolerance of previous anesthesia was also reviewed. The risks and benefits of the procedure and the sedation options and risks were discussed with the patient. All questions were answered, and informed consent was obtained. Prior Anticoagulants: The patient has taken no previous anticoagulant or antiplatelet agents. ASA Grade Assessment: III - A patient with severe systemic disease. After reviewing the risks and benefits, the patient was deemed in satisfactory condition to undergo the procedure. After obtaining informed consent, the endoscope was passed under direct vision. Throughout the procedure, the patient's blood pressure, pulse, and oxygen saturations were monitored continuously. The scope was introduced through the mouth, and advanced to the second part of duodenum. The upper GI endoscopy was accomplished without difficulty. The patient tolerated the procedure well. Findings: The upper third of the esophagus was normal. A large hiatus hernia was found. The proximal extent of the gastric folds (end of tubular esophagus) was 33 cm from the incisors. The hiatal narrowing was 39 cm from the incisors. The Z-line was 33 cm from the incisors. A low-grade of narrowing, non-obstructing and mild Schatzki ring (acquired) was found at the gastroesophageal junction. A guidewire was placed and the scope was withdrawn. Dilation was performed with a Savary dilator with no resistance at 60 Fr. Estimated blood loss: none. The entire examined stomach was normal. The examined duodenum was normal. The cardia and gastric fundus were normal on retroflexion. Impression: - Normal upper third of esophagus. - Large hiatus hernia. - Low-grade of narrowing, non-obstructing and mild Schatzki ring. Dilated. - Normal stomach. - Normal examined duodenum. - No specimens collected. Recommendation: - Discharge patient to home (ambulatory). - Resume regular diet. - Advance diet as tolerated. - Continue present medications. - can reduce omeprazole to once daily for acid suppression - Return to referring physician as previously scheduled. MD Porfirio Duffy MD 08/31/2016 1:57:28 PM This report has been signed electronically. Note Initiated On: 08/31/2016 1:30 PM I attest to the content of the Intraoperative Record and orders documented therein, exceptions below
--- NOTE | 2016-08-31 14:07 | Anesthesiology Progress Note ---
Anesthesia Post Op Note Date & Time Aug 31, 2016 at 14:07 Vital Signs Pain Intensity: 0 Vital Signs Past 12 Hours Date Time Temp Pulse Resp B/P (MAP) Pulse Ox O2 Delivery O2 Flow Rate FiO2 08/31/16 14:04 67 18 116/42 (66) 97 Room Air 08/31/16 13:48 72 18 103/65 (78) 95 Room Air 08/31/16 12:47 36.2 65 18 131/83 (99) 95 Room Air Notes Mental Status: alert / awake / arousable, participated in evaluation Pt Amnestic to Procedure: Yes Nausea / Vomiting: adequately controlled Pain: adequately controlled Airway Patency, RR, SpO2: stable & adequate BP & HR: stable & adequate Hydration State: stable & adequate Anesthetic Complications: no major complications apparent
[2016-08-31 14:20] VITALS: BP 119/60; PULSE 65; O2SAT 97
== END | disposition home or self-care (01) ==
LOC: C.GI 12:06
PROVIDERS: ATTEND Internal Medicine Gastroenterology
DX: K22.2 Esophageal obstruction (principal); K44.9 Diaphragmatic hernia without obstruction or gangrene; Z80.0 Family history of malignant neoplasm of digestive organs; Z79.899 Other long term (current) drug therapy

== ENCOUNTER → 2016-09-08 | Outpatient (CLI) | payer OTHER ==
[~2016-09-08] VITALS: Ht 158.8 cm; Wt 101.5 kg
[~2016-09-08] MED LIST changes: -LIDOCAINE HCL 2% 2 ML VIAL (20MG/ML) ONE; -PROPOFOL IV EMULSION 10 MG/ML 20 ML VIAL IV ONE; -SODIUM CHLORIDE 0.9% 500ML 500 ML IV ONE
[2016-09-08 12:48] VITALS: BP 114/70; PULSE 70; Ht 158.8 cm; Wt 101.5 kg
== END | disposition home or self-care (01) ==
LOC: C.NEUR 12:33
PROVIDERS: ATTEND Internal Medicine Pulmonary Disease
DX: G47.33 Obstructive sleep apnea (adult) (pediatric) (principal); G47.61 Periodic limb movement disorder

== ENCOUNTER → 2016-10-23 | Outpatient (CLI) | payer OTHER | END | disposition home or self-care (01) | LOC: C.PAPS 14:26 | PROVIDERS: ATTEND Obstetrics & Gynecology | DX: R87.613 High grade squamous intraepithelial lesion on cytologic smear of cervix (HGSIL) (principal) ==

== ENCOUNTER → 2016-11-22 | Outpatient (CLI) | payer OTHER ==
[2016-11-22 10:47] LABS: ALT/SGPT 24 U/L (12-78); BLOOD UREA NITROGEN 32 mg/dl (7-18); CALCIUM 8.8 mg/dl (8.5-10.1); CARBON DIOXIDE 25 mmol/L (21-32); CHLORIDE 102 mmol/L (98-107); GLUCOSE 126 mg/dl (70-99); POTASSIUM 3.9 mmol/L (3.5-5.1); SODIUM 135 mmol/L (136-145)
[2016-11-22 10:51] LABS: ALB/GLOB RATIO 0.9 (0.9-2); ALKALINE PHOSPHATASE 83 U/L (45-117); AST/SGOT 15 U/L (15-37); CHOLESTEROL 160 mg/dl (0-200); CHOLESTEROL/HDL RATIO 3.6; HDL CHOLESTEROL 44 mg/dl; LDL CHOLESTEROL CALCULATED 94 mg/dl; TRIGLYCERIDES 112 mg/dl (0-150); VERY LOW DENSITY LIPOPROT CALC 22 mg/dl
[2016-11-22 10:54] LABS: ESTIMATED AVERAGE GLUCOSE 143 mg/dl; HA1C FLAG Normal (Normal)
[2016-11-22 13:16] LABS: RATIO 17.2 mcg/mg (0-30.0)
== END | disposition home or self-care (01) ==
LOC: C.LAB1850 09:32
PROVIDERS: ATTEND Family Medicine
DX: J30.9 Allergic rhinitis, unspecified (principal)

== ENCOUNTER → 2016-12-28 | Outpatient (CLI) | payer OTHER ==
--- NOTE | 2016-12-29 15:37 | MAMMOGRAPHY REPORT ---
BILATERAL DIGITAL SCREENING MAMMOGRAM WITH CAD: 12/28/2016 TECHNIQUE: Current study was also evaluated with a Computer Aided Detection (CAD) system. Bilateral CC and MLO views were obtained. COMPARISON: Comparison is made to exams dated: 11/15/2015 mammogram, 02/06/2014 mammogram, and 08/18/19 10 mammogram - [facility]. BREAST COMPOSITION: The tissue of both breasts is almost entirely fatty. FINDINGS: No suspicious masses, calcifications, or areas of architectural distortion are noted in ei ther breast. There has been no significant interval change compared to prior exams. Scattered bilate ral benign-appearing calcifications are again noted bilaterally. A linear scar marker denotes a scar on the right superior breast. IMPRESSION: ACR BI-RADS CATEGORY 2: BENIGN There is no mammographic evidence of malignancy. A 1 year screening mammogram is recommended. The pa tient will receive written notification of the results. Approximately 10% of breast cancers are not detected with mammography. A negative mammographic report should not delay biopsy if a clinically suggestive mass is present. Hanna Holly M.D. ah/:12/28/2016 16:04:46 Entry Table Operator: Deven LANDA(R)(M), [facility] letter sent: Normal 1/2 BI-RADS Code: ACR BI-RADS Category 2: Benign
== END | disposition home or self-care (01) ==
LOC: C.MAMM 15:41
PROVIDERS: ATTEND Family Medicine
DX: Z12.31 Encounter for screening mammogram for malignant neoplasm of breast (principal)

== ENCOUNTER → 2017-01-02 | Outpatient (CLI) | payer OTHER | END | disposition home or self-care (01) | LOC: C.PATHSPEC 13:51 | PROVIDERS: ATTEND Obstetrics & Gynecology | DX: R87.612 Low grade squamous intraepithelial lesion on cytologic smear of cervix (LGSIL) (principal) ==

== ENCOUNTER → 2017-06-12 | Outpatient (CLI) | payer OTHER ==
[2017-06-12 12:59] LABS: BASO % 0.5 %; BASO ABS # 0.03 K/uL (0-0.2); EOS % 4.2 %; EOS ABS # 0.26 K/uL (0-0.5); HEMATOCRIT 35.3 % (37-47); IG# 0.03 K/uL (0.00-0.02); LYMPH % 34.8 %; LYMPH ABS # 2.17 K/uL (1.2-3.4); MEAN CELL VOLUME 90.3 fL (80-100); MEAN CORPUSCULAR HEMOGLOBIN 30.7 pg (25-34); MEAN PLATELET VOLUME 9.5 fL (7.4-10.4); MONO % 11.1 %; MONO ABS # 0.69 K/uL (0.11-0.59); NEUT % 48.9 %; NEUT ABS # 3.06 K/uL (1.4-6.5); PLATELET COUNT 316 K/uL (130-400); RED CELL DISTRIBUTION WIDTH CV 13.5 % (11.5-14.5); RED CELL DISTRIBUTION WIDTH SD 44.4 fL (36.4-46.3); WHITE BLOOD COUNT 6.24 K/uL (4.8-10.8)
[2017-06-12 13:10] LABS: ALBUMIN 3.7 gm/dl (3.4-5.0); ALT/SGPT 23 U/L (12-78); AST/SGOT 21 U/L (15-37); BLOOD UREA NITROGEN 25 mg/dl (7-18); CARBON DIOXIDE 28 mmol/L (21-32); CHOLESTEROL 225 mg/dl (0-200); CREATININE 1.22 mg/dl (0.60-1.20); GLUCOSE 114 mg/dl (70-99); POTASSIUM 4.4 mmol/L (3.5-5.1); SODIUM 136 mmol/L (136-145)
[2017-06-12 13:13] LABS: ALKALINE PHOSPHATASE 100 U/L (45-117); LDL CHOLESTEROL CALCULATED 141 mg/dl; TOTAL PROTEIN 7.4 gm/dl (6.4-8.2)
[2017-06-12 13:16] LABS: HEMOGLOBIN A1C 6.4 % (4.5-5.6)
== END | disposition home or self-care (01) ==
LOC: C.LABMFLN 08:48
PROVIDERS: ATTEND Family Medicine
DX: E11.9 Type 2 diabetes mellitus without complications (principal); E78.00 Pure hypercholesterolemia, unspecified; I10 Essential (primary) hypertension; R06.09 Other forms of dyspnea

== ENCOUNTER → 2017-09-07 | Outpatient (CLI) | payer OTHER ==
[~2017-09-07] VITALS: Ht 156.2 cm; Wt 219.0 kg
[2017-09-07 12:32] VITALS: BP 124/71; PULSE 79; Ht 156.2 cm; Wt 219.0 kg
== END | disposition home or self-care (01) ==
LOC: C.NEUR 12:19
PROVIDERS: ATTEND Internal Medicine Pulmonary Disease
DX: G47.33 Obstructive sleep apnea (adult) (pediatric) (principal); G47.61 Periodic limb movement disorder

== ENCOUNTER 2020-11-26 13:41 | Observation (INO) ==
[2020-11-26 16:07] LABS: Basophils # (auto) 0.02 K/uL (0-0.2); Basophils % (auto) 0.2 %; Eosinophils # (auto) 0.05 K/uL (0-0.5); Eosinophils % (auto) 0.6 %; Hematocrit (blood only) 38.8 % (37-47); Immature Granulocytes # (auto) 0.01 K/uL (0.00-0.02); Immature Granulocytes % (auto) 0.1 %; Lymphocytes # (auto) 1.64 K/uL (1.2-3.4); Mean Corpuscular Hemoglobin 29.9 pg (25-34); Mean Corpuscular Hgb Conc 33.5 g/dL (32-36); Mean Corpuscular Volume 89.2 fL (80-100); Mean Platelet Volume 9.3 fL (7.4-10.4); Monocytes % (auto) 8.6 %; Neutrophils # (auto) 5.76 K/uL (1.4-6.5); Neutrophils % (auto) 70.5 %; Platelet Count 299 K/uL (130-400); RDW Coefficient of Variation 14.1 % (11.5-14.5); RDW Standard Deviation 46.1 fL (36.4-46.3); Red Blood Count 4.35 M/uL (4.2-5.4); White Blood Count 8.18 K/uL (4.8-10.8)
[2020-11-26 16:20] LABS: Alanine Aminotransferase 22 U/L (12-78); Albumin Level 3.8 gm/dl (3.4-5.0); Aspartate Aminotransferase 17 U/L (15-37); BUN Creatinine Ratio 16.4 (10-20); Blood Urea Nitrogen 15 mg/dl (7-18); Calcium 9.5 mg/dl (8.5-10.1); Carbon Dioxide 24 mmol/L (21-32); Chloride 105 mmol/L (98-107); Est GFR (African American) 70.5 ml/min; Est GFR (Non-African American) 60.8 ml/min; Glucose 110 mg/dl (70-99); Magnesium 1.7 mg/dl (1.8-2.4); Potassium 3.7 mmol/L (3.5-5.1); Sodium 136 mmol/L (136-145)
[2020-11-26 16:26] LABS: Partial Thromboplastin Ratio 0.9; Partial Thromboplastin Time 24.5 Seconds (21.0-31.0); Prothrombin Time 10.2 Seconds (9.0-12.0)
[2020-11-26 16:57] LABS: Albumin Globulin Ratio 0.9 (0.9-2); Alkaline Phosphatase 89 U/L (45-117); Bilirubin,Total 0.4 mg/dl (0.2-1); Globulin 4.1 gm/dl (2.5-4.0); Total Protein 7.9 gm/dl (6.4-8.2); Troponin I 0.609 ng/ml (0-0.045)
[2020-11-26] MEDS ORDERED: OPTIRAY 320 125ml IV ONE (17:07)
[2020-11-26 17:15] LABS: Appearance Urine Clear (Clear); Bacteria Urine Automated 3+ (Negative); Bilirubin Urine Negative (Negative); Blood Urine Trace (Negative); Color Urine Yellow; Epithelial Cell Urine Auto >30 /lpf (0-5); Glucose Urine UA Negative (Negative); Ketones Urine Negative (Negative); Leukocyte Esterase Urine 2+ (Negative); Nitrite Urine Negative (Negative); Protein Urine Negative (Negative); RBC Urine Automated 0-4 /hpf (0-4); Specific Gravity Urine 1.004 (1.000-1.030); Urobilinogen Urine Negative (Negative)
--- NOTE | 2020-11-26 17:20 | CT Scan Report ---
CT OF THE HEAD WITHOUT CONTRAST CLINICAL HISTORY: Altered mental status. COMPARISON STUDY: No previous studies for comparison. TECHNIQUE: Helical axial images of the head were obtained without IV contrast. Automated exposure con trol was utilized for the study. A dose lowering technique was utilized adhering to the principles o f ALARA. FINDINGS: No acute intracranial hemorrhage, midline shift or mass effect is present. White matter hyp odensity suggests small vessel disease. The ventricular system is unremarkable. The basal cisterns ar e patent. No extra-axial collections are present. There are no findings to suggest acute dural sinus thrombosis or acute territorial infarct. No significant calvarial abnormalities are present. Visualiz ed portions of the sinuses and mastoid air cells are clear. IMPRESSION: No acute intracranial findings. ACT 112: Negative or not required by law. Electronically signed by: Toni Gilmore M.D. 11/26/2020 5:18 PM
--- NOTE | 2020-11-26 17:24 | Emergency Department Note ---
Impression & Plan AMS (altered mental status), Elevated troponin, Contusion of forearm, right ED Provider Note INFORMANT: Patient and family ED PROVIDER(S): Bipin Gomez MD CHIEF COMPLAINT: Confusion PLAN: Disposition: Admitted Condition: Good Outpatient prescription management: none Referral: None MEDICAL DECISION MAKING: Patient is a patient in loss of memory. She was clearing up a time she is seen in the emergency department. The hours that were lost was concerning. CT of the performed and was negative. The patient CBC and chemistry panel were unremarkable. Patient's troponin was elevated. Her ECG did not show any acute findings. She has sinus bradycardia. X-ray imaging did not reveal any acute findings either. Patient's urinalysis did raise some concerns for infection. She was treated with IV Rocephin. She was given aspirin. Further management in the hospital was deemed appropriate. Agitation is made with the not any hospital service. Patient was evaluated Admitted. Triage Nursing notes reviewed and agree them. Vital Signs: reviewed and remarkable for hypertension Differential diagnosis: Infection, hypoglycemia, electrolyte abnormalities, overdose, toxicologic, cardiac sources, intracerebral event, neurologic, trauma, as well as other pathologies. Diagnostics interpreted by me: ECG: Twelve-lead ECG reveals sinus bradycardia at [address] elevation or d epression. Normal QRS and axis. Cardiac Monitoring: Cardiac monitoring ordered by me: The patient was placed on continuous cardiac monitoring and observed. It revealed a normal sinus rhythm at 61 beats per minute without ectopy or evidence of dysrhythmia. Imaging studies: Head CT: A noncontrast CT scan of the head was performed and was negative for tumor, fracture, intracranial hemorrhage, or other acute pathology. Chest x-ray. Findings: A chest x-ray was performed and revealed no pneumothorax, effusion, infiltrate, pulmonary edema, free air under the diaphragm, or wide mediastinum. Impression: No acute disease. X-rays negative. I refer you to the EMR for further details. HPI: The patient is a 80 year old female who presents to the Emergency Room with complaints of confusion. This started sometime last night and is persisting throughout the day but after ER arrival seem to be improving. The patient also notes the following associated symptoms, right forearm pain, headache. The patient also states that she broke her tooth chewing on a salad. The patient has taken no medication for relieving factors. Current pain is rated as 5/10. Patient is unsure if she fell. Patient also notes that she is blacking out recently. She did have a cardiology follow-up recently and they adjusted her isosorbide. The patient states that she did not tell cardiology about these episodes of blacking out. Pt denies fevers, chills, diaphoresis, visual changes, neck pain, chest pain, breathing difficulties, nausea, vomiting, abdominal pain, back pain, melena, hematochezia, urinary symptoms, numbness, weakness, lymphadenopathy, rash, or other complaints. ROS: See above HPI for pertinent positives & negatives. A total of 10 systems reviewed and were otherwise negative. PAST MEDICAL HISTORY:See Below , hypertension PAST SURGICAL HISTORY:See Below, FAMILY HISTORY:See Below SOCIAL HISTORY:Non-smoker, see below HOME MEDICATIONS:See Below ALLERGIES:See Below VITALS:See Below PHYSICAL EXAMINATION: GENERAL: Awake, alert, well-appearing, in no distress HENT: Normocephalic, atraumatic. Oropharynx unremarkable Except for broken left lower incisor which appeared to be carious. EYES: Normal conjunctiva. Sclera non-icteric. PERRLA. EOMI. NECK: Inspection normal. Non-tender. Supple. No nuchal rigidity. FROM. No masses. RESPIRATORY: Clear to auscultation. No wheezes. No rales. Normal respiratory effort. CARDIAC: Normal rate. Normal rhythm. No murmurs. No rubs. Extremities warm and well perfused. Pulses equal. No JVD. GI: Soft, non-distended. No tenderness to palpation. No rebound or guarding. No masses. RECTAL: Deferred. MUSCULOSKELETAL: Atraumatic. Chest examination reveals no tenderness. The back is symmetrical on inspection without obvious abnormality. There is no CVA tenderness to palpation. No joint edema. LOWER EXTREMITIES: Calves are equal size bilaterally and non-tender. No edema. No discoloration. NEURO: Normal sensorium. No sensory or motor deficits noted. Cranial nerves II through XII intact. No drift. SKIN: No rash or jaundice noted. Bipin Gomez MD Past Med/Surg History Medical History (Updated 11/27/20 @ 08:34 by Lawrence Gramajo MD) 2019 novel coronavirus not detected Anemia Benign essential hypertension Diverticular disease DM type 2 (diabetes mellitus, type 2) NIDDM Dyspnea on exertion GERD (gastroesophageal reflux disease) History of benign breast biopsy History of cervical cancer dx 3 years ago; s/p KEVIN BSO; no chemo/radiation History of esophageal dilatation Hypercholesterolemia Hypertension, benign essential, goal below 140/90 Neuropathy ERIC (obstructive sleep apnea) CPAP Osteoarthritis Periodic limb movement disorder Stool color black Urinary leakage Surgical History History of cardiac catheterization [facility] [place] 4-5 years ago - no stents/angioplasty; does not follow w/ cardio History of cholecystectomy History of colonoscopy History of esophagogastroduodenoscopy (EGD) History of lumpectomy of right breast History of total abdominal hysterectomy and bilateral salpingo-oophorectomy Family History Sister Breast cancer Mother Cervical cancer Colorectal cancer Diabetes Ovarian cancer Father AAA (abdominal aortic aneurysm) Stroke Myocardial infarction Social History Smoking Status: Never smoker Second Hand Exposure: Yes ( used to smoke -- quit 2007); Hx Alcohol Use: No Hx Substance Use: No Preferred Language: Estonian Communication Ability: Effective Cartridge Gauger Required: No Beliefs That Will Affect Care: None Current Living Situation: Alone Feels Safe at Home: Yes Safety Concerns: Feels Safe At This Time Seatbelt Use: always Assistive Devices: None Allergies Allergies Allergy/AdvReac Type Severity Reaction Status Date / Time Caorlsz-CCK-TcG Reductase Allergy Unknown LEG CRAMPS Verified 11/26/20 16:26 Inhibitor [Cvpfyuf-Vhc-Hel Reductase Inhibitor] Home Meds Home Medications Medication Instructions Recorded Confirmed multivitamin (Daily Multi-Vitamin) 1 tab PO QAM 10/29/18 11/26/20 aspirin 81 mg tablet,delayed 81 mg PO QAM tab 09/09/19 11/26/20 release (Adult Low Dose Aspirin) [employer] Plus 4 cap PO DAILY 10/22/20 11/26/20 Bacillus coagulans 2 billion 1 cap PO BID 11/26/20 11/26/20 cell-calcium 140 mg capsule (Digestive Advantage Probiotic) magnesium 500 mg tablet 15 mg PO DAILY 11/26/20 11/26/20 psyllium husk 0.52 gram capsule 0.52 g PO BID 11/26/20 11/26/20 (Daily Fiber) Previous Rx's Medication Instructions Recorded losartan 100 mg tablet 100 mg PO QAM #90 tab 12/29/19 blood-glucose meter (OneTouch #1 ea 02/05/20 Ultra2 Meter) lancets 33 gauge (OneTouch Delica #100 ea 02/05/20 Lancets) omeprazole 40 mg capsule,delayed 40 mg PO BID #180 cap 02/20/20 release CPAP Machine #1 ea 03/23/20 blood sugar diagnostic (OneTouch #50 ea 04/07/20 Ultra Blue Test Strip) lovastatin 10 mg tablet 10 mg PO QPM #90 tab 06/16/20 ferrous gluconate 324 mg (37.5 mg 324 mg PO DAILY #30 tab 06/17/20 iron) tablet metoprolol succinate 50 mg 50 mg PO DAILY #90 tab 07/29/20 tablet,extended release 24 hr metformin 500 mg tablet 500 mg PO UD #150 tab 11/19/20 isosorbide mononitrate 60 mg 60 mg PO QAM #90 tab 11/24/20 tablet,extended release 24 hr cefadroxil 500 mg capsule 500 mg PO Q12H 5 Days #10 cap 11/27/20 Results & Data (ED) Vital Signs Vital Signs - 24 hr 11/26/20 13:52 11/26/20 16:14 11/26/20 16:15 Temperature 37.0 C Temperature Source Temporal Artery Scan Pulse Rate 67 63 Pulse Rate [Apical] 61 Pulse Rhythm Regular Regular Pulse Rhythm [Apical] Regular Pulse Strength Normal Pulse Strength [Apical] Normal Respiratory Rate 20 18 18 Respiratory Effort / Characteristics Non-Labored Spontaneous Non-Labored Spontaneous Respiratory Depth Normal Normal Respiratory Pattern Regular Blood Pressure 205/84 H Blood Pressure [Left Arm] 180/97 H Blood Pressure Mean 124 Blood Pressure Mean [Left Arm] 124 Blood Pressure Position [Left Arm] Semi-fowlers Pulse Oximetry 97 98 98 Oxygen Delivery Method Room Air Room Air Room Air Oxygen Flow Rate 0 Sepsis Recent Fever Within 48 Hours No Sepsis New/Unexplained Change in Mental Status No Sepsis Action Taken by Nursing No Action Required 11/26/20 18:00 Temperature Temperature Source Pulse Rate Pulse Rate [Apical] 73 Pulse Rhythm Pulse Rhythm [Apical] Regular Pulse Strength Pulse Strength [Apical] Normal Respiratory Rate 18 Respiratory Effort / Characteristics Non-Labored Spontaneous Respiratory Depth Normal Respiratory Pattern Regular Blood Pressure Blood Pressure [Left Arm] 170/80 H Blood Pressure Mean Blood Pressure Mean [Left Arm] 110 Blood Pressure Position [Left Arm] Semi-fowlers Pulse Oximetry 96 Oxygen Delivery Method Room Air Oxygen Flow Rate Sepsis Recent Fever Within 48 Hours Sepsis New/Unexplained Change in Mental Status Sepsis Action Taken by Nursing Laboratory Data Result diagrams: 11/27/20 04:18 11/27/20 04:18 Lab Results 11/26/20 11/26/20 11/26/20 Range/Units 15:49 15:49 15:49 WBC 8.18 (4.8-10.8) K/uL RBC 4.35 (4.2-5.4) M/uL Hgb 13.0 (12.0-16.0) g/dL Hct 38.8 (37-47) % MCV 89.2 (80-100) fL MCH 29.9 (25-34) pg MCHC 33.5 (32-36) g/dL RDW Std Deviation 46.1 (36.4-46.3) fL RDW Coeff of Brittany 14.1 (11.5-14.5) % Plt Count 299 (130-400) K/uL MPV 9.3 (7.4-10.4) fL Immature Gran % (Auto) 0.1 % Neut % (Auto) 70.5 % Lymph % (Auto) 20.0 % Slope % (Auto) 8.6 % Eos % (Auto) 0.6 % Baso % (Auto) 0.2 % Neut # (Auto) 5.76 (1.4-6.5) K/uL Lymph # (Auto) 1.64 (1.2-3.4) K/uL Slope # (Auto) 0.70 H (0.11-0.59) K/uL Eos # (Auto) 0.05 (0-0.5) K/uL Baso # (Auto) 0.02 (0-0.2) K/uL Immature Gran # (Auto) 0.01 (0.00-0.02) K/uL PT 10.2 (9.0-12.0) Seconds INR 1.0 (0.9-1.1) APTT 24.5 (21.0-31.0) Seconds PTT Ratio 0.9 Sodium 136 (136-145) mmol/L Potassium 3.7 (3.5-5.1) mmol/L Chloride 105 (98-107) mmol/L Carbon Dioxide 24 (21-32) mmol/L Anion Gap 7.0 (3-11) BUN 15 (7-18) mg/dl Creatinine 0.90 (0.6-1.2) mg/dl Est Cr Clr Drug Dosing Not Reportable Est GFR ( Amer) 70.5 ml/min Est GFR (Non-Af Amer) 60.8 ml/min BUN/Creatinine Ratio 16.4 (10-20) Glucose 110 H (70-99) mg/dl Calcium 9.5 (8.5-10.1) mg/dl Magnesium 1.7 L (1.8-2.4) mg/dl Total Bilirubin 0.4 (0.2-1) mg/dl AST 17 (15-37) U/L ALT 22 (12-78) U/L Alkaline Phosphatase 89 (45-117) U/L Troponin I 0.609 H* (0-0.045) ng/ml Total Protein 7.9 (6.4-8.2) gm/dl Albumin 3.8 (3.4-5.0) gm/dl Globulin 4.1 H (2.5-4.0) gm/dl Albumin/Globulin Ratio 0.9 (0.9-2) TSH 1.170 (0.300-4.500) uIu/ml Urine Color Urine Appearance (Clear) Urine pH (4.5-7.5) Ur Specific [place] (1.000-1.030) Urine Protein (Negative) Urine Glucose (UA) (Negative) Urine Ketones (Negative) Urine Blood (Negative) Urine Nitrite (Negative) Urine Bilirubin (Negative) Urine Urobilinogen (Negative) Ur Leukocyte Esterase (Negative) Urine WBC (Auto) (0-5) /hpf Urine RBC (Auto) (0-4) /hpf U Hyaline Cast (Auto) (0-5) /lpf U Epithel Cells (Auto) (0-5) /lpf Urine Bacteria (Auto) (Negative) COVID-19 Eval Order SARS-CoV-2 (PCR) (Negative) 11/26/20 11/26/20 11/26/20 Range/Units 16:45 16:45 16:45 WBC (4.8-10.8) K/uL RBC (4.2-5.4) M/uL Hgb (12.0-16.0) g/dL Hct (37-47) % MCV (80-100) fL MCH (25-34) pg MCHC (32-36) g/dL RDW Std Deviation (36.4-46.3) fL RDW Coeff of Brittany (11.5-14.5) % Plt Count (130-400) K/uL MPV (7.4-10.4) fL Immature Gran % (Auto) % Neut % (Auto) % Lymph % (Auto) % Slope % (Auto) % Eos % (Auto) % Baso % (Auto) % Neut # (Auto) (1.4-6.5) K/uL Lymph # (Auto) (1.2-3.4) K/uL Slope # (Auto) (0.11-0.59) K/uL Eos # (Auto) (0-0.5) K/uL Baso # (Auto) (0-0.2) K/uL Immature Gran # (Auto) (0.00-0.02) K/uL PT (9.0-12.0) Seconds INR (0.9-1.1) APTT (21.0-31.0) Seconds PTT Ratio Sodium (136-145) mmol/L Potassium (3.5-5.1) mmol/L Chloride (98-107) mmol/L Carbon Dioxide (21-32) mmol/L Anion Gap (3-11) BUN (7-18) mg/dl Creatinine (0.6-1.2) mg/dl Est Cr Clr Drug Dosing Est GFR ( Amer) ml/min Est GFR (Non-Af Amer) ml/min BUN/Creatinine Ratio (10-20) Glucose (70-99) mg/dl Calcium (8.5-10.1) mg/dl Magnesium (1.8-2.4) mg/dl Total Bilirubin (0.2-1) mg/dl AST (15-37) U/L ALT (12-78) U/L Alkaline Phosphatase (45-117) U/L Troponin I (0-0.045) ng/ml Total Protein (6.4-8.2) gm/dl Albumin (3.4-5.0) gm/dl Globulin (2.5-4.0) gm/dl Albumin/Globulin Ratio (0.9-2) TSH (0.300-4.500) uIu/ml Urine Color Yellow Urine Appearance Clear (Clear) Urine pH 6.0 (4.5-7.5) Ur Specific [place] 1.004 (1.000-1.030) Urine Protein Negative (Negative) Urine Glucose (UA) Negative (Negative) Urine Ketones Negative (Negative) Urine Blood Trace H (Negative) Urine Nitrite Negative (Negative) Urine Bilirubin Negative (Negative) Urine Urobilinogen Negative (Negative) Ur Leukocyte Esterase 2+ H (Negative) Urine WBC (Auto) 10-30 H (0-5) /hpf Urine RBC (Auto) 0-4 (0-4) /hpf U Hyaline Cast (Auto) 1-5 (0-5) /lpf U Epithel Cells (Auto) >30 H (0-5) /lpf Urine Bacteria (Auto) 3+ H (Negative) COVID-19 Eval Order Covid19 at [facility] SARS-CoV-2 (PCR) NEGATIVE (Negative) Administered Medications Ferrous Gluconate (Ferrous Gluconate 324 Mg Tab) 324 mg PO DAILY [facility] Stop: 12/27/20 08:59 Last Admin: 11/27/20 07:57 Dose: 324 mg Documented by: [id number] Isosorbide Mononitrate (Isosorbide Slope Extended Rel 60 Mg Tabcr) 60 mg PO QAM [facility] Stop: 12/27/20 08:59 Last Admin: 11/27/20 07:57 Dose: 60 mg Documented by: [id number] Lactobacillus Acidoph/Casei/Rhamnos (Advanced Probiotic 1250 Mg Capsule) 2 cap PO BID [facility] Stop: 12/26/20 21:41 Last Admin: 11/27/20 07:59 Dose: 2 cap Documented by: [id number] Admin: 11/26/20 22:51 Dose: 2 cap Documented by: [id number] Losartan Potassium (Losartan Potassium 50 Mg Tab) 100 mg PO QAM [facility] Stop: 12/27/20 08:59 Last Admin: 11/27/20 07:57 Dose: 100 mg Documented by: [id number] Lovastatin (Lovastatin 20 Mg Tab) 10 mg PO QPM [facility] Stop: 12/26/20 21:41 Last Admin: 11/26/20 22:52 Dose: 10 mg Documented by: [id number] Magnesium Oxide (Magnesium Oxide 400 Mg Tab) 400 mg PO DAILY [facility] Stop: 12/27/20 08:59 Last Admin: 11/27/20 07:57 Dose: 400 mg Documented by: [id number] Metoprolol Succinate (Metoprolol Succ 50mg Ext Rel Tab) 50 mg PO DAILY [facility] Stop: 12/27/20 08:59 Last Admin: 11/27/20 07:57 Dose: 50 mg Documented by: [id number] Multivitamins (Multivitamin Tab) 1 tab PO QAM [facility] Stop: 12/27/20 08:59 Last Admin: 11/27/20 07:58 Dose: 1 tab Documented by: [id number] Pantoprazole Sodium (Pantoprazole 40 Mg Tab) 40 mg PO BID LUD[facility] Stop: 12/26/20 21:41 Last Admin: 11/27/20 07:57 Dose: 40 mg Documented by: [id number] Admin: 11/26/20 22:52 Dose: 40 mg Documented by: [id number] Psyllium Hydrophilic Mucilloid (Psyllium 58.6% Powder Packet) 1 pkt PO BID LUDY Stop: 12/26/20 21:41 Last Admin: 11/27/20 07:59 Dose: Not Given Documented by: [id number] Admin: 11/26/20 22:52 Dose: 1 pkt Documented by: [id number] Discontinued Medications Aspirin (Aspirin Chew 324 Mg) 324 mg PO NOW STA Stop: 11/26/20 17:59 Last Admin: 11/26/20 18:46 Dose: 324 mg Documented by: [id number] Gadobutrol (Gadobutrol 65ml Vial) 10 ml IV ONCE ONE Stop: 11/26/20 20:28 Last Admin: 11/26/20 20:20 Dose: 10 ml Documented by: [id number] Ceftriaxone Sodium (Rocephin) 2,000 mg in 70 mls @ 140 mls/hr IV NOW STA Stop: 11/26/20 18:27 Last Infusion: 11/26/20 19:21 Dose: 0 mls/hr Documented by: [id number] Admin: 11/26/20 18:48 Dose: 140 mls/hr Documented by: [id number] Magnesium Sulfate/Dextrose (Magnesium Sulfate / D5w) 1 gm in 100 mls @ 50 mls/hr IV Q2H [facility]UD[facility] Stop: 11/26/20 23:29 Last Infusion: 11/27/20 02:14 Dose: 0 mls/hr Documented by: [id number] Admin: 11/26/20 23:53 Dose: 50 mls/hr Documented by: [id number] Infusion: 11/26/20 22:00 Dose: 0 mls/hr Documented by: [id number] Admin: 11/26/20 19:33 Dose: 50 mls/hr Documented by: [id number] Ioversol (Optiray 320 125ml) 110 ml IV ONCE ONE Stop: 11/26/20 17:08 Last Admin: 11/26/20 17:09 Dose: 110 ml Documented by: [id number] Nitroglycerin (Nitroglycerin 2% Ointment 30gm Tube) 1 inch EXT Q6H [facility]UD[facility] Stop: 11/27/20 09:00 Last Admin: 11/27/20 04:59 Dose: 1 inch Documented by: [id number] Admin: 11/26/20 22:54 Dose: 1 inch Documented by: [id number] Discharge Plan Visit Data Chief Complaint: Confusion Stated Complaint: PARTIAL MEMORY LOSS, REFERRED BY DOCTOR ED Provider: Bipin Gomez Discharge Problem: AMS (altered mental status), Elevated troponin, Contusion of forearm, right Patient Disposition: Admitted As Inpatient Discharge Instructions Interventions: ED Discharge Assessment Last Done: 11/26/20 20:33
--- NOTE | 2020-11-26 17:38 | CT Scan Report ---
CT ANGIOGRAPHY OF THE NECK WITH CONTRAST CLINICAL HISTORY: Altered mental status. COMPARISON STUDY: No previous studies for comparison. Technique: CT angiography of the carotid and vertebral arteries was obtained using Optiray and 3D rec onstruction on an independent workstation. NASCET criteria was utilized. Automated exposure control was utilized for the study. A dose lowering technique was utilized adhering to the principles of ALA RA. CT DOSE: 1064.58 mGy.cm Findings: Visualized portions of the lung apices are unremarkable. There is no cervical lymphadenopat hy. No acute cervical spine fracture is noted. The bilateral common carotid, cervical internal caroti d and vertebral arteries are patent. The left vertebral artery is dominant. There is no dissection wi thin the major vessels of the neck there is mild plaque within the proximal right internal carotid ar ady without stenosis. IMPRESSION: No stenosis or dissection within the bilateral common carotid, cervical internal carotid or vertebral arteries. ACT 112: Negative or not required by law. Electronically signed by: Toni Gilmore M.D. 11/26/2020 5:36 PM
--- NOTE | 2020-11-26 17:40 | CT Scan Report ---
CTA ANGIOGRAPHY OF THE HEAD CLINICAL HISTORY: Altered mental status. COMPARISON STUDY: No previous studies for comparison. TECHNIQUE: Helical axial images of the head were obtained following uneventful intravenous administr ation of 114 cc of Optiray. Sagittal and coronal reconstructions were viewed as well as maximal inten sity projections on an independent 3-D workstation. Automated exposure control was utilized for the study. A dose lowering technique was utilized adhering to the principles of ALARA. FINDINGS: No acute intracranial hemorrhage, midline shift or mass effect is present. Right mastoid ai r cells are partially opacified. There is persistence of the right posterior cerebral artery. N o central vessel occlusion is present. No intracranial aneurysm. There is a large left posterior comm unicating artery. There is mild plaque within bilateral cavernous carotids without stenosis. No intra cranial aneurysm is identified. IMPRESSION: No central vessel occlusion. No intracranial aneurysm. ACT 112: Negative or not required by law. Electronically signed by: Toni Gilmore M.D. 11/26/2020 5:39 PM
[2020-11-26] MEDS ORDERED: ASPIRIN CHEW 324 MG PO STA (17:58)
[2020-11-26] MEDS ORDERED: cefTRIAXone SODIUM 2,000 MG/70 ML BAG IV STA (17:58)
--- NOTE | 2020-11-26 18:30 | History & Physical Report ---
Date of Service November 26, 2020 Assessment & Plan (1) Transient global amnesia: Plan: MRI Brain w/wo IV contrast - if negative with defer neurology consult unless she has a recurrence. ?myocardial infarction - trend troponins as below. ?UTI - see below (2) Elevated troponin: Plan: Suspected single vessel disease on prior NM stress. Patient refused cardiac catheterization. Continue to trend overnight, if rising will consult cardiology as difficult to rule out ACS given her amnesia. No current chest pain or shortness of breath. Most likely demand-ischemia with her missing her usual anti-hypertensives. (3) UTI (urinary tract infection): Plan: Questionable diagnosis given lack of symptoms but given transient global amnesia above would elect to treat Ceftriaxone 2g IV daily Follow up urine culture (4) Ocular migraine: Plan: Suspected cause of her episodic vision episodes. Ongoing since her in March. Follow up with neurology/PCP as outpatient. (5) ERIC (obstructive sleep apnea): Plan: CPAP HS (6) Periodic limb movement disorder: Plan: Replace magnesium Consider repeat iron studies as outpatient (7) Abnormal stress test: Plan: ASA, ISMN, Metoprolol, losartan, lovastatin (8) Benign essential hypertension: Plan: Continue regular medications ISMN, Metoprolol, losaratan as above If MRI negative for acute CVA will start on nitro patch to lower blood pressure overnight (9) DM type 2 (diabetes mellitus, type 2): Plan: HbA1C 6.8 in May Hold metformin BSG ACHS with correction insulin only Plan: VTE Prophylaxis - SCDs, chemical prophylaxis deferred Diet - T2DM, heart healthy Disposition - observation status to PCU Admission and Anticipated Discharge Date Admission Date: November 26, 2020 History of Present Illness Chief Complaint: Amnesia Primary Care Provider: Dez Ruffin MD Jory Mayer is a 80 year old female who presents to the ER with confusion. Here with her daughter who provides the majority of her history. She was reportedly feeling her normal self yesterday. Family talked to her on the phone and had no concerns. This morning when family visited she was not focused and didn't remember talking to them yesterday, has only vague memory of going to bed. Confused about objects that had been recently moved to a different spot. Improving since this morning now in the emergency room she has more memories coming back. Does not remember falling. Doesn't remember if she took her med ications this morning. Broke her tooth yesterday during supper. More chronically she has been having lightheaded episodes. 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 These started after the of her in March. Headache is a frontal ache, non pulsating. On description of these symptoms to her PCP in March she was diagnosed with ocular migraines. They had been getting more frquent but she was started on ISMN by cardiology and she reports this reduced the severity and frequency of these. In the ER her troponin was elevated. She denies any current chest pain or shortness of breath but cannot remember earlier in the day. UA showed possibly UTI although > 30 epithelial cells also present. She was started on ceftriaxone for UTI. CT head and angiograms head/neck were unremarkable. She was referred to medicine for admission. Allergies Allergy/AdvReac Type Severity Reaction Status Date / Time Cgjzfco-[id number]-[id number] Reductase Allergy Unknown LEG CRAMPS Verified 11/26/20 16:26 Inhibitor [Bryfstb-Wsj-Ujh Reductase Inhibitor] Home Medications Medication Instructions Recorded Confirmed Type multivitamin (Daily Multi-Vitamin) 1 tab PO QAM 10/29/18 11/26/20 History aspirin 81 mg tablet,delayed 81 mg PO QAM tab 09/09/19 11/26/20 History release (Adult Low Dose Aspirin) losartan 100 mg tablet 100 mg PO QAM #90 tab 12/29/19 11/26/20 Rx blood-glucose meter (OneTouch #1 ea 02/05/20 10/22/20 Rx Ultra2 Meter) lancets 33 gauge (OneTouch Delica #100 ea 02/05/20 10/22/20 Rx Lancets) omeprazole 40 mg capsule,delayed 40 mg PO BID #180 cap 02/20/20 11/26/20 Rx release CPAP Machine #1 ea 03/23/20 10/22/20 Rx blood sugar diagnostic (OneTouch #50 ea 04/07/20 10/22/20 Rx Ultra Blue Test Strip) lovastatin 10 mg tablet 10 mg PO QPM #90 tab 06/16/20 11/26/20 Rx ferrous gluconate 324 mg (37.5 mg 324 mg PO DAILY #30 tab 06/17/20 11/26/20 Rx iron) tablet metoprolol succinate 50 mg 50 mg PO DAILY #90 tab 07/29/20 11/26/20 Rx tablet,extended release 24 hr Macuhealth Plus 4 cap PO DAILY 10/22/20 11/26/20 History metformin 500 mg tablet 500 mg PO UD #150 tab 11/19/20 11/26/20 Rx isosorbide mononitrate 60 mg 60 mg PO QAM #90 tab 11/24/20 11/26/20 Rx tablet,extended release 24 hr Bacillus coagulans 2 billion 1 cap PO BID 11/26/20 11/26/20 History cell-calcium 140 mg capsule (Digestive Advantage Probiotic) magnesium 500 mg tablet 15 mg PO DAILY 11/26/20 11/26/20 History psyllium husk 0.52 gram capsule 0.52 g PO BID 11/26/20 11/26/20 History (Daily Fiber) Past Med/Surg History Medical History (Updated 11/27/20 @ 08:34 by Lawrence Gramajo MD) 2019 novel coronavirus not detected Anemia Benign essential hypertension Diverticular disease DM type 2 (diabetes mellitus, type 2) NIDDM Dyspnea on exertion GERD (gastroesophageal reflux disease) History of benign breast biopsy History of cervical cancer dx 3 years ago; s/p KEVIN BSO; no chemo/radiation History of esophageal dilatation Hypercholesterolemia Hypertension, benign essential, goal below 140/90 Neuropathy ERIC (obstructive sleep apnea) CPAP Osteoarthritis Periodic limb movement disorder Stool color black Urinary leakage Surgical History History of cardiac catheterization [facility] [place] 4-5 years ago - no stents/angioplasty; does not follow w/ cardio History of cholecystectomy History of colonoscopy History of esophagogastroduodenoscopy (EGD) History of lumpectomy of right breast History of total abdominal hysterectomy and bilateral salpingo-oophorectomy Family History Sister Breast cancer Mother Cervical cancer Colorectal cancer Diabetes Ovarian cancer Father AAA (abdominal aortic aneurysm) Stroke Myocardial infarction Social History Smoking Status: Never smoker Second Hand Exposure: Yes ( used to smoke -- quit 2007); Hx Alcohol Use: No Hx Substance Use: No Preferred Language: Frisian Communication Ability: Effective Space Scheduler Required: No Beliefs That Will Affect Care: None Current Living Situation: Alone Feels Safe at Home: Yes Safety Concerns: Feels Safe At This Time Seatbelt Use: always Assistive Devices: None Review of Systems Review of Systems: All systems reviewed & are unremarkable except as noted in HPI & below Physical Exam Constitutional: WD/WN, vitals as above Respiratory: normal respiratory effort, lungs clear to auscultation Cardiovascular: Rate/Rhythm: regular rate and regular rhythm Gastrointestinal (Abdomen): normal bowel sounds, soft, nontender, no hepatosplenomegaly Musculoskeletal: no cyanosis or clubbing, extremities motor strength 5/5 Neurologic: moves all extremities and awake; no focal motor deficits and not confused Motor/Sensory: no tremor and no pronator drift Cranial Nerves: PERRL, EOM intact bilaterally, normal facial strength, tongue midline, normal hearing, able to rotate head bilaterally, able to elevate shoulders bilaterally, no nystagmus and symmetric palate elevation Coordination: normal [id number] test Psychiatric: A+Ox3, euthymic affect Results & Data Results & Data ([facility]) Vital Signs (Past 12 Hours) Vital Signs Temp Pulse Pulse Resp BP BP Pulse Ox 11/26/20 16:15 61 18 180/97 H 98 11/26/20 16:14 63 18 98 11/26/20 13:52 37.0 C 67 20 205/84 H 97 Laboratory Results Abnormal lab results 11/26/20 11/26/20 11/26/20 Range/Units 15:49 15:49 16:45 [place] # (Auto) 0.70 H (0.11-0.59) K/uL Glucose 110 H (70-99) mg/dl POC Glucose (70-99) mg/dl Magnesium 1.7 L (1.8-2.4) mg/dl Troponin I 0.609 H* (0-0.045) ng/ml Globulin 4.1 H (2.5-4.0) gm/dl Urine Blood Trace H (Negative) Ur Leukocyte Esterase 2+ H (Negative) Urine WBC (Auto) 10-30 H (0-5) /hpf U Epithel Cells (Auto) >30 H (0-5) /lpf Urine Bacteria (Auto) 3+ H (Negative) 11/26/20 11/26/20 Range/Units 19:48 21:32 [place] # (Auto) (0.11-0.59) K/uL Glucose (70-99) mg/dl POC Glucose 116 H (70-99) mg/dl Magnesium (1.8-2.4) mg/dl Troponin I 0.816 H* (0-0.045) ng/ml Globulin (2.5-4.0) gm/dl Urine Blood (Negative) Ur Leukocyte Esterase (Negative) Urine WBC (Auto) (0-5) /hpf U Epithel Cells (Auto) (0-5) /lpf Urine Bacteria (Auto) (Negative) Diagnostic Findings CT OF THE HEAD WITHOUT CONTRAST CLINICAL HISTORY: Altered mental status. COMPARISON STUDY: No previous studies for comparison. TECHNIQUE: Helical axial images of the head were obtained without IV contrast. Automated exposure control was utilized for the study. A dose lowering technique was utilized adhering to the principles of ALARA. FINDINGS: No acute intracranial hemorrhage, midline shift or mass effect is present. White matter hypodensity suggests small vessel disease. The ventricular system is unremarkable. The basal cisterns are patent. No extra-axial collections are present. There are no findings to suggest acute dural sinus thrombosis or acute territorial infarct. No significant calvarial abnormalities are present. Visualized portions of the sinuses and mastoid air cells are clear. IMPRESSION: No acute intracranial findings. XR chest 1V portable CLINICAL HISTORY: confusion COMPARISON STUDY: Chest radiograph June 30, 2020. FINDINGS: Patient is rotated. Lung volumes are normal. Minimal left basilar opacity favors atelectasis, unchanged. There is no pneumothorax or pleural effusion. There is mild cardiomegaly. Mediastinal contours are normal. There is no evidence for pulmonary edema. A hiatal hernia is noted. IMPRESSION: No acute cardiopulmonary findings. No change in appearance of the chest. XR forearm RT 2V CLINICAL HISTORY: distal pain COMPARISON: None FINDINGS: IV is incidentally noted. Alignment of the right elbow is anatomic. There is no evidence for a right elbow joint effusion. There is no acute fracture of the right radius or ulna. Mild right elbow osteoarthritis is present. IMPRESSION: No acute fracture of the right radius or ulna. CTA ANGIOGRAPHY OF THE HEAD CLINICAL HISTORY: Altered mental status. COMPARISON STUDY: No previous studies for comparison. TECHNIQUE: Helical axial images of the head were obtained following uneventful intravenous administration of 114 cc of Optiray. Sagittal and coronal reconstructions were viewed as well as maximal intensity projections on an independent 3-D workstation. Automated exposure control was utilized for the study. A dose lowering technique was utilized adhering to the principles of ALARA. FINDINGS: No acute intracranial hemorrhage, midline shift or mass effect is present. Right mastoid air cells are partially opacified. There is persistence of the right posterior cerebral artery. No central vessel occlusion is present. No intracranial aneurysm. There is a large left posterior communicating artery. There is mild plaque within bilateral cavernous carotids without stenosis. No intracranial aneurysm is identified. IMPRESSION: No central vessel occlusion. No intracranial aneurysm. CT ANGIOGRAPHY OF THE NECK WITH CONTRAST CLINICAL HISTORY: Altered mental status. COMPARISON STUDY: No previous studies for comparison. Technique: CT angiography of the carotid and vertebral arteries was obtained using Optiray and 3D reconstruction on an independent workstation. NASCET criteria was utilized. Automated exposure control was utilized for the study. A dose lowering technique was utilized adhering to the principles of ALARA. CT DOSE: 1064.58 mGy.cm Findings: Visualized portions of the lung apices are unremarkable. There is no cervical lymphadenopathy. No acute cervical spine fracture is noted. The bilateral common carotid, cervical internal carotid and vertebral arteries are patent. The left vertebral artery is dominant. There is no dissection within the major vessels of the neck there is mild plaque within the proximal right internal carotid artery without stenosis. IMPRESSION: No stenosis or dissection within the bilateral common carotid, cervical internal carotid or vertebral arteries. Medications Administered ER Medications Given: Aspirin 324mg PO Ceftriaxone 2g IV ECG Indication: SOB/dyspnea Rate (beats per minute): 59 Rhythm: sinus bradycardia Findings: no acute ischemic change Comparison ECG Date: from (July 02, 2018) Change: no significant change Code Status & VTE Plan Code Status Full VTE Prophylaxis Plan VTE Prophylaxis will be ordered: Yes PG Care Time/CCT Total # of Minutes Spent Total Time Spent with Patient: Total time spent is greater than 50% in coordination of care (as documented) at patient's floor/unit and/or counseling patient: Coding Level of Care Code INT OBSERVATION CARE 70M LVL 3 Diagnoses Transient global amnesia G45.4 Ocular migraine G43.109 Elevated troponin R77.8 ERIC (obstructive sleep apnea) G47.33 UTI (urinary tract infection) N39.0 Periodic limb movement disorder G47.61 Abnormal stress test R94.39 Benign essential hypertension I10 DM type 2 (diabetes mellitus, type 2) E11.9
--- NOTE | 2020-11-26 18:37 | XRay Report ---
XR forearm RT 2V CLINICAL HISTORY: distal pain COMPARISON: None FINDINGS: IV is incidentally noted. Alignment of the right elbow is anatomic. There is no evidence f or a right elbow joint effusion. There is no acute fracture of the right radius or ulna. Mild right e lbow osteoarthritis is present. IMPRESSION: No acute fracture of the right radius or ulna. ACT 112: Negative or not required by law. Electronically signed by: Toni Gilmore M.D. 11/26/2020 6:36 PM
--- NOTE | 2020-11-26 18:39 | XRay Report ---
XR chest 1V portable CLINICAL HISTORY: confusion COMPARISON STUDY: Chest radiograph June 30, 2020. FINDINGS: Patient is rotated. Lung volumes are normal. Minimal left basilar opacity favors atelectasi s, unchanged. There is no pneumothorax or pleural effusion. There is mild cardiomegaly. Mediastinal c ontours are normal. There is no evidence for pulmonary edema. A hiatal hernia is noted. IMPRESSION: No acute cardiopulmonary findings. No change in appearance of the chest. ACT 112: Negative or not required by law. Electronically signed by: Toni Gilmore M.D. 11/26/2020 6:37 PM
[2020-11-26] MEDS: MAGNESIUM SULFATE / D5W 1 GM/100 ML BAG IV SCH ×2 (19:33→23:53)
[2020-11-26] MEDS ORDERED: GADOBUTROL 65ML VIAL IV ONE (20:27)
--- NOTE | 2020-11-26 21:18 | Magnetic Resonance Report ---
MRI OF THE BRAIN WITHOUT AND WITH IV CONTRAST CLINICAL HISTORY: transient amnesia COMPARISON STUDY: Head CT and CTA of the head performed earlier today. TECHNIQUE: Utilizing a 1.5 Sunni magnet and dedicated coil, multiplanar, multiecho imaging of the br ain was performed pre and postcontrast administration. IV administration of [address] was uneventful. Thin cut T1 post contrast imaging was performed. FINDINGS: There are no foci of restricted diffusion to suggest acute infarct. No acute intracranial h emorrhage, midline shift or mass effect is present. Ventricular system is unremarkable. Basal cistern s are patent. Flow-voids for the major intracranial vessels are present. There is no intracranial mas s or pathologic enhancement. Numerous small white matter T2 hyperintense foci suggest small vessel di sease. Calvarial signal is unremarkable. There is minimal mucosal thickening of the left maxillary si nus. Right mastoid air cells are partially opacified. IMPRESSION: 1. No acute intracranial findings. 2. No intracranial mass or pathologic enhancement. 3. White matter T2 hyperintense foci suggestive of small vessel disease. ACT 112: Negative or not required by law. Electronically signed by: Toni Gilmore M.D. 11/26/2020 9:16 PM
[2020-11-26] MEDS ORDERED: LOVASTATIN 20 MG TAB PO SCH (21:42)
[2020-11-26] MEDS ORDERED: ONDANSETRON INJ 2 MG/ML 2 ML VIAL IV PRN (21:42)
[2020-11-26] MEDS: ADVANCED PROBIOTIC 1250 MG CAPSULE PO SCH (22:51)
[2020-11-26] MEDS: PSYLLIUM 58.6% POWDER PACKET PO SCH (22:52)
[2020-11-26] MEDS: PANTOprazole 40 MG TAB PO SCH (22:52)
[2020-11-26] MEDS: NITROGLYCERIN 2% OINTMENT 30GM TUBE EXT SCH (22:54)
[2020-11-27 04:32] LABS: Basophils # (auto) 0.03 K/uL (0-0.2); Basophils % (auto) 0.6 %; Eosinophils # (auto) 0.08 K/uL (0-0.5); Eosinophils % (auto) 1.5 %; Hematocrit (blood only) 36.4 % (37-47); Hemoglobin 11.9 g/dL (12.0-16.0); Immature Granulocytes # (auto) 0.01 K/uL (0.00-0.02); Immature Granulocytes % (auto) 0.2 %; Lymphocytes # (auto) 1.47 K/uL (1.2-3.4); Lymphocytes % (auto) 27.3 %; Mean Corpuscular Hemoglobin 29.2 pg (25-34); Mean Corpuscular Hgb Conc 32.7 g/dL (32-36); Mean Corpuscular Volume 89.4 fL (80-100); Mean Platelet Volume 9.1 fL (7.4-10.4); Monocytes # (auto) 0.66 K/uL (0.11-0.59); Monocytes % (auto) 12.3 %; Neutrophils # (auto) 3.13 K/uL (1.4-6.5); Neutrophils % (auto) 58.1 %; Platelet Count 259 K/uL (130-400); RDW Coefficient of Variation 14.2 % (11.5-14.5); RDW Standard Deviation 46.7 fL (36.4-46.3); Red Blood Count 4.07 M/uL (4.2-5.4); White Blood Count 5.38 K/uL (4.8-10.8)
[2020-11-27 04:51] LABS: BUN Creatinine Ratio 12.8 (10-20); Calcium 8.9 mg/dl (8.5-10.1); Est GFR (African American) 73.4 ml/min; Est GFR (Non-African American) 63.4 ml/min; Magnesium 2.2 mg/dl (1.8-2.4); Potassium 3.8 mmol/L (3.5-5.1)
[2020-11-27] MEDS: NITROGLYCERIN 2% OINTMENT 30GM TUBE EXT SCH (04:59)
[2020-11-27 06:14] LABS: Troponin I 0.404 ng/ml (0-0.045)
[2020-11-27] MEDS: PANTOprazole 40 MG TAB PO SCH (07:57)
[2020-11-27] MEDS: PSYLLIUM 58.6% POWDER PACKET PO SCH (07:59)
[2020-11-27] MEDS: ADVANCED PROBIOTIC 1250 MG CAPSULE PO SCH (07:59)
[2020-11-27] MEDS ORDERED: [UNRECOGNIZED DRUG - OTHER] PO SCH (09:00)
[2020-11-27] MEDS ORDERED: LOSARTAN POTASSIUM 50 MG TAB PO SCH (09:00)
[2020-11-27] MEDS ORDERED: MAGNESIUM OXIDE 400 MG TAB PO SCH (09:00)
[2020-11-27] MEDS ORDERED: ISOSORBIDE MONO EXTENDED REL 60 MG TABCR PO SCH (09:00)
[2020-11-27] MEDS ORDERED: METOPROLOL SUCC 50MG EXT REL TAB PO SCH (09:00)
[2020-11-27] MEDS ORDERED: MULTIVITAMIN TAB PO SCH (09:00)
[2020-11-27] MEDS ORDERED: FERROUS GLUCONATE 324 MG TAB PO SCH (09:00)
--- NOTE | 2020-11-27 10:22 | Discharge Summary ---
Date of Service November 27, 2020 Admission HPI Per Admitting Provider Jory Mayer is a 80 year old female who presents to the ER with confusion. Here with her daughter who provides the majority of her history. She was reportedly feeling her normal self yesterday. Family talked to her on the phone and had no concerns. This morning when family visited she was not focused and didn't remember talking to them yesterday, has only vague memory of going to bed. Confused about objects that had been recently moved to a different spot. Improving since this morning now in the emergency room she has more memories coming back. Does not remember falling. Doesn't remember if she took her medica tions this morning. Broke her tooth yesterday during supper. More chronically she has been having lightheaded episodes. She describes it as her vision getting telemarketer than darker (like going through a tunnel) then suddenly much brighter with associated headache. These started after the of her in March. Headache is a frontal ache, non pulsating. On description of these symptoms to her PCP in March she was diagnosed with ocular migraines. They had been getting more frquent but she was started on ISMN by cardiology and she reports this reduced the severity and frequency of these. In the ER her troponin was elevated. She denies any current chest pain or shortness of breath but cannot remember earlier in the day. UA showed possibly UTI although > 30 epithelial cells also present. She was started on ceftriaxone for UTI. CT head and angiograms head/neck were unremarkable. She was referred to medicine for admission. Admission Exam Per Admitting Provider Constitutional: WD/WN, vitals as above Respiratory: normal respiratory effort, lungs clear to auscultation Cardiovascular: Rate/Rhythm: regular rate and regular rhythm Gastrointestinal (Abdomen): normal bowel sounds, soft, nontender, no hepatosplenomegaly Musculoskeletal: no cyanosis or clubbing, extremities motor strength 5/5 Neurologic: moves all extremities and awake; no focal motor deficits and not confused Motor/Sensory: no tremor and no pronator drift Cranial Nerves: PERRL, EOM intact bilaterally, normal facial strength, tongue midline, normal hearing, able to rotate head bilaterally, able to elevate shoulders bilaterally, no nystagmus and symmetric palate elevation Coordination: normal [id number]-[id number]-xplg test Psychiatric: A+Ox3, euthymic affect Principal Diagnosis UTI Transient global amnesia Discharge Exam General: A&Ox3. NAD. Cooperative. HEENT: Atraumatic, normocephalic. Pulm: CTAB A&P. -wheezes, -rales, -rhonchi. Symmetrical chest rise. No increase work of breathing. No respiratory distress. Cardiac: RRR, -mrg. Radial pulses intact and symmetrical. Abdominal: Nontender, nondistended, soft. BS present. CRANIAL NERVES: II: Pupils equal and reactive, no relative afferent pupillary defect, no VF cuts III, IV, : EOM intact, no gaze preference or deviation, no nystagmus. 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, finger flexion/extension, interosseus LUE: 5/5 Shoulder internal rotation, external rotation, flexion, extension, abduction, adduction 5/5 Elbow flexion/extension, wrist flexion/extension 5/5 warehouse foreman strength, finger flexion/extension, interosseus RLE: 5/5 to hip flexion, ankle dorsiflexion/plantarflexion LLE: 5/5 to hip flexion, ankle dorsiflexion/plantarflexion SENSORY: Normal to touch in upper and lower extremities without deficit or asymmetry Discharge Data Allergies Allergy/AdvReac Type Severity Reaction Status Date / Time Jyydjkc-FTG-JgC Reductase Allergy Unknown LEG CRAMPS Verified 11/26/20 16:26 Inhibitor [Rizxold-Wmd-Zpq Reductase Inhibitor] Consultations 11/26/20 19:01 ED Decision to Admit Stat Ordered Studies I OF THE BRAIN WITHOUT AND WITH IV CONTRAST CLINICAL HISTORY: transient amnesia COMPARISON STUDY: Head CT and CTA of the head performed earlier today. TECHNIQUE: Utilizing a 1.5 Sunni magnet and dedicated coil, multiplanar, multiecho imaging of the brain was performed pre and postcontrast administration. IV administration of 10 mL of Gadavist contrast was uneventful. Thin cut T1 post contrast imaging was performed. FINDINGS: There are no foci of restricted diffusion to suggest acute infarct. No acute intracranial hemorrhage, midline shift or mass effect is present. Ventricular system is unremarkable. Basal cisterns are patent. Flow-voids for the major intracranial vessels are present. There is no intracranial mass or pathologic enhancement. Numerous small white matter T2 hyperintense foci suggest small vessel disease. Calvarial signal is unremarkable. There is minimal mucosal thickening of the left maxillary sinus. Right mastoid air cells are partially opacified. IMPRESSION: 1. No acute intracranial findings. 2. No intracranial mass or pathologic enhancement. 3. White matter T2 hyperintense foci suggestive of small vessel disease. 11/26/20 16:14 CT head/brain wo con Stat 11/26/20 16:28 CT angio head w con Stat CT angio neck with con Stat 11/26/20 19:04 MR brain wo/w con Urgent CT ANGIOGRAPHY OF THE NECK WITH CONTRAST CLINICAL HISTORY: Altered mental status. COMPARISON STUDY: No previous studies for comparison. Technique: CT angiography of the carotid and vertebral arteries was obtained using Optiray and 3D reconstruction on an independent workstation. NASCET criteria was utilized. Automated exposure control was utilized for the study. A dose lowering technique was utilized adhering to the principles of ALARA. CT DOSE: 1064.58 mGy.cm Findings: Visualized portions of the lung apices are unremarkable. There is no cervical lymphadenopathy. No acute cervical spine fracture is noted. The bilateral common carotid, cervical internal carotid and vertebral arteries are patent. The left vertebral artery is dominant. There is no dissection within the major vessels of the neck there is mild plaque within the proximal right internal carotid artery without stenosis. IMPRESSION: No stenosis or dissection within the bilateral common carotid, cervical internal carotid or vertebral arteries. ACT 112: Negative or not required by law. CTA ANGIOGRAPHY OF THE HEAD CLINICAL HISTORY: Altered mental status. COMPARISON STUDY: No previous studies for comparison. TECHNIQUE: Helical axial images of the head were obtained following uneventful intravenous administration of 114 cc of Optiray. Sagittal and coronal reconstructions were viewed as well as maximal intensity projections on an independent 3-D workstation. Automated exposure control was utilized for the study. A dose lowering technique was utilized adhering to the principles of ALARA. FINDINGS: No acute intracranial hemorrhage, midline shift or mass effect is present. Right mastoid air cells are partially opacified. There is persistence of the right posterior cerebral artery. No central vessel occlusion is present. No intracranial aneurysm. There is a large left posterior communicating artery. There is mild plaque within bilateral cavernous carotids without stenosis. No intracranial aneurysm is identified. IMPRESSION: No central vessel occlusion. No intracranial aneurysm. ACT 112: Negative or not required by law. Hospital Course (1) Transient global amnesia: Max Acosta 80-year-old female who was seen for abrupt onset memory loss of approximately 1-1/2 days, who was behaving normally at work for the time. That she cannot remember. At her time of presentation she had acute confusion over short-term changes that shares in her house, and some confusion over whether she had taken her medications. Transient global amnesia Acute stressors, recently passed, also noted to have UTI on admission MRI with contrast, CTA head/neck all without acute findings No evidence of seizure-like activity, incontinence, or residual weakness Neurologic exam normal without focal deficits Patient did experience a troponin leak, likely due to hypertension/UTI which down trended. Neurologic exam normal at discharge, patient with linear goal-directed thinking and intact short-term memory. Memory of admission and of time. Prior to her abrupt loss completely intact. Follow-up with neurology as outpatient (2) Elevated troponin: Suspected single vessel disease on prior NM stress. Patient refused cardiac catheterization. Down trended, consistent with demand ischemia in the setting of missing antihypertensives and UTI No current chest pain or shortness of breath. (3) UTI (urinary tract infection): UA infected appearing, although no symptoms Given transgluteal anemia will treat empirically Gram-negative's on pulmonary culture, past pansensitive infection on prior cultures Empiric narrowing to cefadroxil, sensitivities pending with follow-up to PCP (4) Ocular migraine: Suspected cause of her episodic vision episodes. Ongoing since her in March. Follow up with neurology/PCP as outpatient. (5) ERIC (obstructive sleep apnea): CPAP HS (6) Periodic limb movement disorder: Replace magnesium Consider repeat iron studies as outpatient (7) Abnormal stress test: ASA, ISMN, Metoprolol, losartan, lovastatin (8) Benign essential hypertension: Continue regular medications ISMN, Metoprolol, losaratan as above Blood pressure improved, normotensive morning of discharge (9) DM type 2 (diabetes mellitus, type 2): HbA1C 6.8 in May Hold metformin BSG ACHS with correction insulin only Adequate glycemic control during admission VTE Prophylaxis - SCDs, chemical prophylaxis deferred Diet - T2DM, heart healthy Total Time Total Time Spent Total Time Spent (In Minutes): Total time spent preparing discharge on day of discharge including direct patient care, review of labs and images, documentation 40 minutes Discharge Plan Discharge Items Patient Disposition: Home - Self-Care Reason For Visit: TRANSIENT GLOBAL AMNESIA Discharge Diagnosis: UTI Transient global amnesia Activity: Resume your previous activity Non-emergency contact: Primary Care Provider Call non-emergency contact if: you have any medication questions, your symptoms worsen and your pain is not controlled Follow-up/Referrals: Altaf Gandhi MD [Physician] - Dez Ruffin MD [Primary Care Provider] - Diet: Regular Addtl Attending Provider Instructions: You are seen in the hospital for acute retrograde memory loss.An MRI of your brain did not show any abnormalities, and did not show any sign of stroke, mass, bleeding, or inflammation. A CAT scan of your brain, blood vessels within the brain, and blood vessels of the neck did not show any abnormalities. Your symptoms were consistent condition known as transient global amnesia. This condition can cause loss of memory for a period of time, this condition can be onset by stress but typically does not recur. There were no signs of stroke, seizure, or other concerning neurologic conditions. On admission our urine was infected appearing, and your urine culture grew gram- negative bacilli consistent with a urinary tract infection. You have been prescribed an antibiotic as below, sensitivities were not available at time of discharge. It may take several days for your urine culture to return sensitivities, in some cases bacteria can be resistant to antibiotics and if this is the case your antibiotic may need to be switched. Please follow-up with your primary care provider for the results of the sensitivities, or call if you develop worsening symptoms/fever/chest/burning with urination. Your heart markers (troponins) were slightly elevated during admission. This was likely due to stress due to blood pressure and your acute presentation, cold demand ischemia. You recently had a stress echocardiogram and did not wish to proceed with catheterization at this time. Your elevated troponins suggested demand ischemia, but there were no signs of heart attack during admission.. Please continue follow-up with your multigraph operator and primary care physician for monitoring and additional recommendations. If you develop severe chest pain, chest pressure, shortness of breath, shoulder pain, or other new/concerning symptoms in the future call 911 for reevaluation in the emergency department. You have been prescribed an antibiotic, cefadroxil. Please take cefadroxil 500 mg twice daily for 5 days. A outpatient follow-up with neurology for your amnesia is being scheduled. You should receive a call within 2 days to confirm this appointment, you should be seen within 1 month. If you do not hear from their office regarding an appointment, please call them directly at the number above. Follow-up with your primary care provider is being scheduled. You should be seen within 1 week. If you do not receive a call to confirm your appointment, please call their office at [phone] If you develop any new or worsening symptoms including fever, chills, sweats, chest pain, chest pressure, difficulty breathing, uncontrolled nausea/vomiting, rash, wheezing, passing out or nearly passing out, bleeding, black/bloody bowel movements, or other new or concerning symptoms please call your primary care physician at [phone], or call 911 for re-evaluation in the emergency department if you are very concerned. Pending Studies at Discharge: Yes Stand-Alone Forms: My [facility] [employer]SI[employer], Smoking Cessation Medications and DC Order Prescriptions: New cefadroxil 500 mg capsule 500 mg PO Q12H 5 Days Qty: 10 RF: 0 Continued losartan 100 mg tablet 100 mg PO QAM Qty: 90 RF: 3 (DME) blood-glucose meter [OneTouch Ultra2 Meter] Kit See Rx Instructions .ROUTE .MEDSUPPLY Qty: 1 RF: 0 (DME) lancets [OneTouch Delica Lancets] 33 gauge misc See Rx Instructions .ROUTE .MEDSUPPLY Qty: 100 RF: 0 omeprazole 40 mg capsule,delayed release(DR/EC) 40 mg PO BID Qty: 180 RF: 3 (DME) CPAP Machine Misc See Rx Instructions .ROUTE .MEDSUPPLY Qty: 1 RF: 0 (DME) OneTouch Ultra Blue Test Strip Strip See Rx Instructions .ROUTE .MEDSUPPLY Qty: 50 RF: 11 ferrous gluconate 324 mg (37.5 mg iron) tablet 324 mg PO DAILY Qty: 30 RF: 0 metoprolol succinate 50 mg tablet extended release 24 hr 50 mg PO DAILY Qty: 90 RF: 3 metformin 500 mg tablet 500 mg PO UD Qty: 150 RF: 0 aspirin [Adult Low Dose Aspirin] 81 mg tablet,delayed release (DR/EC) 81 mg PO QAM RF: 0 isosorbide mononitrate 60 mg tablet extended release 24 hr 60 mg PO QAM Qty: 90 RF: 3 lovastatin 10 mg tablet 10 mg PO QPM Qty: 90 RF: 3 Macuhealth Plus 4 cap PO DAILY RF: 0 multivitamin [Daily Multi-Vitamin] tablet 1 tab PO QAM RF: 0 magnesium 500 mg Tablet 15 mg PO DAILY RF: 0 Digestive Advantage Probiotic 2 billion cell- 140 mg Capsule 1 cap PO BID RF: 0 psyllium husk [Daily Fiber] 0.52 gram Capsule 0.52 g PO BID RF: 0 Discharge Orders: Discharge Order (Routine); Ordered 11/27/20 Ordered By: Mir Watson Admission Data Admit Date/Time: 11/26/20 19:29 Attending Provider: Mir Watson Admit Provider: Lawrence Gramajo Primary Care Provider: Dez Ruffin Other Providers: Mando Del Rio ; Lawrence Gramajo Coding Level of Care Code 10585 OBS Care - Discharge Diagnoses Transient global amnesia G45.4 Elevated troponin R77.8 UTI (urinary tract infection) N39.0 Ocular migraine G43.109 ERIC (obstructive sleep apnea) G47.33 Periodic limb movement disorder G47.61 Abnormal stress test R94.39 Benign essential hypertension I10 DM type 2 (diabetes mellitus, type 2) E11.9
--- NOTE | 2020-11-27 13:38 | Electrocardiogram Report ---
Test Reason : Blood Pressure : / mmHG Vent. Rate : 059 BPM Atrial Rate : 059 BPM P-R Int : 186 ms QRS Dur : 096 ms QT Int : 402 ms P-R-T Axes : 061 007 046 degrees QTc Int : 397 ms Sinus bradycardia Otherwise normal ECG When compared with ECG of 02-JUL-2018 14:20, Nonspecific T wave abnormality no longer evident in Inferior leads Confirmed by Mervin Hebert ([id number]) on 11/27/2020 1:38:28 PM Referred By: Dez Ruffin Confirmed By:Mervin Hebert
[2020-11-27] MEDS ORDERED: cefTRIAXone SODIUM 2,000 MG in DEXTROSE 5% 50 ML IV SCH (18:00)
== END 2020-11-27 14:30 | disposition home or self-care (01) ==
LOC: 2S 13:41 → ED 13:41 → SUATTDRO 19:29 → 2S 20:33